=== PATIENT | female | born 1960 | race Caucasian/White ===

== ENCOUNTER 2016-09-04 05:06 | Emergency (ER) | payer OTHER ==
[~2016-09-04] VITALS: Ht 167.6 cm; Wt 68.0 kg
--- NOTE | 2016-09-04 05:23 | ED DYSPNEA/ASTHMA COMPLAINT ---
History of Present Illness General Chief Complaint: Dyspnea (COPD, CHF, Other) Stated Complaint: BIBA SOB Source: patient Exam Limitations: no limitations Vital Signs & Intake/Output Vital Signs & Intake/Output Vital Signs Date Time Temp Pulse Resp B/P B/P Pulse O2 O2 Flow FiO2 Mean Ox Delivery Rate 09/04 922 98.9 112 18 133/81 94 09/04 0709 98.9 101 18 133/84 93 09/04 0604 94 09/04 0524 95 Room Air 09/04 05 97.4 104 18 144/88 95 Room Air Allergies Coded Allergies: aspirin (UNKNOWN 09/04/16) Reconcile Medications Albuterol Sulfate (Proair Hfa) 90 MCG HFA.AER.AD 2 PUF INH Q4-6 PRN PRN SHORTNESS OF BREATH (Reported) Alendronate Sodium 70 MG TABLET 1 TAB PO QTUES BONE STRENGTH (Reported) in the morning, at least 30 minutes before the first food, beverage, or medication of the day Budesonide/Formoterol Fumarate (Symbicort 160-4.5 Mcg Inhaler) 160 MCG-4.5 MCG/ ACTUATION HFA.AER.AD 2 PUF INH BID SHORTNESS OF BREATH (Reported) Divalproex Sodium 250 MG TABLET.DR 1 TAB PO BID NEUROPATHY (Reported) Escitalopram Oxalate 10 MG TABLET 1 TAB PO DAILY DEPRESSION (Reported) Esomeprazole (Nexium) 40 MG CAPSULE.DR 1 CAP PO DAILY GI (Reported) Gabapentin 300 MG CAPSULE 1 CAP PO BID NEUROPATHY (Reported) Ipratropium/Albuterol Sulfate (Iprat-Albut 0.5-3(2.5) MG/3 Ml) 0.5 MG-3 MG (2.5 MG BASE)/3 ML AMPUL.NEB 1 PO BID BREATHING PROBLEMS (Reported) Lidocaine 5 % ADH..PATCH 1 PAT TOP DAILY PRN PAIN (Reported) Triage Nurses Notes Reviewed? yes HPI: Patient presents for evaluation of an abrupt onset of dyspnea that began yesterday. Symptoms have been constant and have gotten worse overnight. The patient states she has been wheezing and coughing with white phlegm production. Despite using her nebulizer and metered-dose inhaler at home her shortness of breath persisted. She has had a runny nose and sinus congestion but otherwise denies fever or leg swelling. She is also experiencing a sharp left chest pain that gets worse with coughing, a 3-4 out of 10 in intensity. Patient was treated with a DuoNeb and Solu-Medrol prehospital. (JUAN WYNNE,LI Love) Past History Travel History Traveled to [place] past 21 day No Medical History Any Pertinent Medical History? see below for history Respiratory: COPD Gastrointestinal: peptic ulcer disease, upper GI bleed Endocrine: diabetes Surgical History Surgical History: unobtainable Psychosocial History Who do you live with Other (see notes) What is your primary language Persian Tobacco Use: Current Daily Use Daily Tobacco Use Amount/Type: => 5 Cigarettes daily Family History Hx Contributory? No (LI MARTINEZ MD) Review of Systems Review of Systems Constitutional: Reports: no symptoms. EENTM: Reports: no symptoms. Respiratory: Reports: see HPI. Cardiovascular: Reports: no symptoms. GI: Reports: no symptoms. Genitourinary: Reports: no symptoms. Musculoskeletal: Reports: no symptoms. Skin: Reports: no symptoms. Neurological/Psychological: Reports: no symptoms. Hematologic/Endocrine: Reports: no symptoms. Immunologic/Allergic: Reports: no symptoms. All Other Systems: Reviewed and Negative (JUAN WYNNE,LI Love) Physical Exam Physical Exam Respiratory: sEE BELOW Comments: Gen.: Well-nourished, well-developed, no acute respiratory distress. Head: Normocephalic, atraumatic. Eyes: Normal inspection bilaterally Ears: Normal inspection bilaterally Nose: Normal inspection Throat/mouth : Moist mucosa Neck: Supple, full range of motion, no goiter Heart: Regular rate and rhythm, no murmurs rubs or gallops Lungs: Clear to auscultation bilaterally with normal air entry Chest: Nontender Back: Normal range of motion Abdomen: Soft, nontender, nondistended, normal bowel sounds Extremities: Normal range of motion grossly, equal radial pulses, no cyanosis clubbing or edema, calves nontender Neurologic: Cranial nerves grossly intact, speech is clear Skin: warm and dry Psychiatric: Calm, cooperative, no apparent delusions or hallucinations Core Measures ACS in differential dx? No Severe Sepsis Present: No Septic Shock Present: No (LI MARTINEZ MD) Progress Differential Diagnosis: bronchitis, CHF, COPD, pneumonia Plan of Care: Orders Procedure Date/time Status Telemetry/Data Software Engineer 09/04 520 Active TROPONIN LEVEL 09/04 520 Complete MAGNESIUM 09/04 520 Complete CBC WITHOUT DIFFERENTIAL 09/04 520 Complete B-TYPE NATRIURETIC PEP (BNP) 09/04 520 Complete BASIC METABOLIC PANEL 09/04 520 Complete EKG 09/04 520 Active Current Medications Sig/Beverly Start time Last Medication Dose Stop Time Status Admin Azithromycin 500 MG ONCE ONE 09/04 1030 AC 09/04 (Zithromax) 09/04 1129 1110 Sodium Chloride 250 ML (Normal Saline 0.9%) Laboratory Tests 09/04/16 0532: Anion Gap 14, Estimated GFR > 60, BUN/Creatinine Ratio 22.0, Glucose 91, Calcium 8.7, Magnesium 1.5 L, Troponin I < 0.01, Jeg-Z-Lojkwhutadp Pept 35.5, CBC w Diff NO MAN DIFF REQ, RBC 4.15 L, MCV 90.8, MCH 30.4, RDW 15.4 H, MPV 6.3 L, Gran % 43.7, Lymphocytes % 46.9, Monocytes % 7.7, Eosinophils % 1.1, Basophils % 0.6, Absolute Granulocytes 2.3, Absolute Lymphocytes 2.4, Absolute Monocytes 0.4 , Absolute Eosinophils 0.1, Absolute Basophils 0, PUBS MCHC 33.5 Initial ED EKG: NSR, rate, AFIB (91), no ST T wave changes Comments: 09/04/2016 8:38:46 AM Bijal is feeling better after nebulizer here in the emergency department and prehospital DuoNeb and Solu-Medrol. He has an infiltrate on her chest x-ray likely representing a pneumonia. Patient signed out to Dr. Lugo with albuterol nebulizer in progress (JUAN WYNNE,LI Love) Comments: Ambulatory saturation 94%. Patient is anxious about going home. Patient has home health as well as bilingual social worker involvement already. Patient is stable for discharge. (DK WYNNE,HITESH Escobar) Departure Departure Condition: Stable Clinical Impression Primary Impression: COPD exacerbation Referrals: JETHRO WYNNE,THEE Brown (PCP/Family) Departure Forms: Customer Survey General Discharge Information (JUAN WYNNE,LI Love) Departure Disposition: HOME OR SELF CARE Additional Instructions: TAKE ANTIBIOTICS PRESCRIBED RETURN IF SYMPTOMS WORSEN OR FOR ANY CONCERNS Prescriptions: Current Visit Scripts Azithromycin (Zithromax) 1 DP PO AD #6 TAB 2 the first day followed by 1 for days 2-5 Prednisone 1 TAB PO DAILY #30 TAB TAKE 4 TABS FOR 3 DAYS THEN TAKE 3 TABS FOR 3 DAYS THEN TAKE 2 TABS FOR 3 DAYS THEN TAKE 1 TAB FOR 3 DAYS (DK WYNNE,HITESH Escobar) Critical Care Note Critical Care Note Critical Care Time: 30-74 min (JUAN WYNNE,LI Love)
[2016-09-04 05:41] LABS: ABSOLUTE BASOPHIL COUNT 0 /CUMM (0.0-0.2); ABSOLUTE EOSINOPHIL COUNT 0.1 /CUMM (0.0-0.7); ABSOLUTE GRANULOCYTE CT 2.3 /CUMM (1.4-6.5); ABSOLUTE LYMPH COUNT 2.4 /CUMM (1.2-3.4); ABSOLUTE MONOCYTE COUNT 0.4 /CUMM (0.10-0.60); BASOPHIL % 0.6 % (0.0-2.0); EOSINOPHIL % 1.1 % (0-5); GRANULOCYTE % 43.7 % (42.2-75.2); HEMATOCRIT 37.6 % (37-47); MEAN CORPUSCULAR HGB 30.4 PG (27.0-31.0); MEAN CORPUSCULAR HGB CONC 33.5 G/DL (33.0-37.0); MEAN CORPUSCULAR VOLUME 90.8 FL (81.0-99.0); MEAN PLATELET VOLUME 6.3 FL (7.4-10.4); PLATELET COUNT 175 /CUMM (130-400); RBC DISTRIBUTION WIDTH 15.4 % (11.5-14.5); RED BLOOD CELL CT 4.15 /CUMM (4.20-5.40); WHITE BLOOD CELL COUNT 5.2 /CUMM (4.8-10.8)
--- NOTE | 2016-09-04 08:14 | RADIOLOGY REPORT ---
EXAMINATION: XR PORTABLE CHEST CLINICAL INFORMATION: Dyspnea, cough, sputum COMPARISON: None TECHNIQUE: Portable upright AP view of the chest was obtained. FINDINGS: There is probable airspace consolidation left retrocardiac region with ill-defined diaphragmatic contour. The remainder the lungs appear clear. The vascularity is within normal. The cardiopericardial silhouette appears enlarged. Hilar and mediastinal contours and bony structures are unremarkable. IMPRESSION: Airspace consolidation left base.
[2016-09-04] MEDS ORDERED: GABAPENTIN300 M2 PO (08:26)
[2016-09-04] MEDS ORDERED: DIVALPROEX SOD250 M2 PO (08:27)
[2016-09-04] MEDS ORDERED: NEXIUM40 M1 PO (08:27)
[2016-09-04] MEDS ORDERED: ESCITALOPRAM OX10 MG PO (08:27)
[2016-09-04] MEDS ORDERED: PROAIR HFA8.5 GM INH (08:28)
[2016-09-04] MEDS ORDERED: SYMBICORT 16010.2 GM INH (08:28)
[2016-09-04] MEDS ORDERED: ALENDRONATE SOD70 M2 PO (08:28)
[2016-09-04] MEDS ORDERED: IPRAT-ALBUT 0.5-3 ML PO (08:29)
[2016-09-04] MEDS ORDERED: LIDOCAINE1 EACH TOP (08:29)
[2016-09-04] MEDS ORDERED: ZITHROMAX250 M2 PO (11:21)
[2016-09-04] MEDS ORDERED: PREDNISONE10 M2 PO (11:21)
[2016-09-04 11:51] VITALS: BP 128/80
== END 2016-09-04 12:08 ==
LOC: ERH 05:06
PROVIDERS: Emergency Medicine
DX: J44.1 Chronic obstructive pulmonary disease with (acute) exacerbation (principal); F17.210 Nicotine dependence, cigarettes, uncomplicated
CPT/HCPCS: 1263; 1395; 93005; 93010; 96374; 96375; J0696

== ENCOUNTER 2017-04-01 11:55 | Emergency (ER) | payer OTHER ==
[~2017-04-01] VITALS: Ht 10.2 cm; Wt 68.0 kg
[~2017-04-01 11:55] MED LIST: ALENDRONATE SOD70 M2 PO; ATORVASTATIN CA20 M1 PO; AUGMENTIN 875-1 EACH PO; DIVALPROEX SOD250 M2 PO; ESCITALOPRAM OX10 MG PO; GABAPENTIN300 M2 PO; IPRAT-ALBUT 0.5-3 ML INH; LIDOCAINE1 EACH TOP; MELOXICAM15 M1 PO; NEXIUM40 M1 PO; PREDNISONE10 M2 PO; PROAIR HFA8.5 GM INH; SYMBICORT 16010.2 GM INH; SYNTHROID25 MCG PO; TYLENOL325 M1 PO; ZITHROMAX250 M2 PO
[2017-04-01 12:02] VITALS: BP 129/83
== END 2017-04-01 12:03 | disposition admitted as inpatient to this hospital (09) ==
LOC: ERH 11:55
DX: M54.5 Low back pain (principal)

== ENCOUNTER 2017-05-31 19:13 | Emergency (ER) | payer OTHER ==
[~2017-05-31] VITALS: Ht 160 cm; Wt 68.0 kg
--- NOTE | 2017-05-31 19:16 | ED PSYCHIATRIC COMPLAINT ---
History of Present Illness General Chief Complaint: ETOH/Drug Related Complaint Stated Complaint: BIBA ETOH Source: patient, EMS Exam Limitations: intoxication Vital Signs & Intake/Output Vital Signs & Intake/Output Vital Signs Date Time Temp Pulse Resp B/P B/P Pulse O2 O2 Flow FiO2 Mean Ox Delivery Rate 06/01 0151 98.4 97 20 105/56 99 Room Air 05/31 2235 98.0 111 20 101/60 95 Room Air 05/31 1928 98.1 66 20 128/80 96 ED Intake and Output 06/01 0000 05/31 1200 Intake Total 0 Output Total Balance 0 Intake, Oral 0 Patient 150 lb Weight Weight Reported by Patient Measurement Method Allergies Coded Allergies: aspirin (Intermediate, NAUSEA 12/07/16) Reconcile Medications Albuterol Sulfate (Proair Hfa) 90 MCG HFA.AER.AD 2 PUF INH Q4-6 PRN PRN SHORTNESS OF BREATH (Reported) Alendronate Sodium 70 MG TABLET 1 TAB PO QTUES BONE STRENGTH (Reported) in the morning, at least 30 minutes before the first food, beverage, or medication of the day Atorvastatin Calcium 20 MG TABLET 1 TAB PO DAILY CHOLESTEROL (Reported) Divalproex Sodium 250 MG TABLET.DR 1 TAB PO BID NEUROPATHY (Reported) Escitalopram Oxalate 10 MG TABLET 1 TAB PO DAILY DEPRESSION (Reported) Esomeprazole (Nexium) 40 MG CAPSULE.DR 1 CAP PO DAILY GI (Reported) Gabapentin 300 MG CAPSULE 1 CAP PO BID NEUROPATHY (Reported) Ipratropium/Albuterol Sulfate (Iprat-Albut 0.5-3(2.5) MG/3 Ml) 0.5 MG-3 MG (2.5 MG BASE)/3 ML AMPUL.NEB 1 VIAL INH BID BREATHING PROBLEMS (Reported) Levothyroxine Sodium (Synthroid) 25 MCG TABLET 1 TAB PO DAILY AC THYROID ( Reported) Lidocaine 5 % ADH..PATCH 1 PAT TOP DAILY PRN PAIN (Reported) Meloxicam 15 MG TABLET 1 TAB PO DAILY PRN pain Triage Nurses Notes Reviewed? yes HPI: This is a 56-year-old female brought into the hospital by ambulance after being told by police that she had to come for evaluation. She states that today she called the police because there was a man outside of her house that was making a lot of records. She states when the police came to talk to her about it they noticed that she had been drinking which she admits to. She states that she's been drinking every day for the last several days. No SI or HI. Patient was told that if she didn't come willingly that they would put her on a 72 hour hold. Patient states that she is little bit upset because she is moving her 's body to be next to his son's cemetery plot. Because of the she's felt slightly depressed. (Lauren Bazan MD) Past History Medical History Any Pertinent Medical History? see below for history Neurological: seizure EENT: NONE Cardiovascular: NONE Respiratory: COPD Gastrointestinal: peptic ulcer disease, upper GI bleed Hepatic: NONE Renal: NONE Musculoskeletal: osteoarthritis, osteoporosis Psychiatric: alcohol dependence, anxiety Endocrine: BORDER LINE DIABETES Blood Disorders: NONE Cancer(s): NONE SEQUINS SPOOLER/Reproductive: NONE History of MRSA: No History of VRE: No History of CDIFF: No Surgical History Surgical History: unobtainable Psychosocial History What is your primary language Belgian Family History Hx Contributory? No (Lauren Bazan MD) Review of Systems Review of Systems Constitutional: Denies: chills, fever. Respiratory: Denies: cough, short of breath, sputum production. Cardiovascular: Denies: chest pain, peripheral edema. GI: Denies: abdominal pain. Neurological/Psychological: Reports: anxiety, emotional problems. (Lauren Bazan MD) Physical Exam Physical Exam General Appearance: well developed/nourished, alert, awake, intoxicated Head: atraumatic, normal appearance Eyes: Bilateral: normal appearance, PERRL, EOMI. Ears, Nose, Throat: normal pharynx, hearing grossly normal Neck: normal inspection, supple, full range of motion Respiratory: normal breath sounds, chest non-tender, no respiratory distress Cardiovascular: regular rate/rhythm, normal peripheral pulses Gastrointestinal: soft, non-tender Extremities: normal range of motion Neurological/Psychiatric: awake, alert Appearance/Memory/Insight: appropriate appearance, denies illness Behavoir/Eye Contact/Speech: cooperative Thoughts/Hallucinations: no apparent hallucination Skin: intact, normal color, warm/dry SAD PERSONS Done? patient not suicidal (Lauren Bazan MD) Progress Differential Diagnosis: ALCOHOL INTOXICATION Plan of Care: SOBRIETY AND DISCHARGE Hand-Off Endorsed To: Carlos WYNNE,Aubrey Edge Endorsed Time: 2300 Pending: other (SOBRIETY) (Lauren Bazan MD) Departure Departure Disposition: STILL A PATIENT Condition: Stable Clinical Impression Primary Impression: Alcohol intoxication Referrals: Lillian WYNNE,Perry Brown (PCP/Family) Departure Forms: Customer Survey General Discharge Information (Beni WYNNE,Lauren) Departure Comments 06/01/17, 1:52am... pt breathylized 0.069. She is awake and alert, ambulating well, answering questions appropriately. She wishes to go home, denies SI/HI and does not wish detox. (Carlos WYNNE,Aubrey Edge)
[2017-06-01 01:51] VITALS: BP 105/56
== END 2017-06-01 02:00 ==
LOC: ERH 19:13
DX: F10.129 Alcohol abuse with intoxication, unspecified (principal)

== ENCOUNTER 2017-06-19 13:49 | Emergency (ER) | payer SELFPAY | END 2017-06-19 14:13 | disposition admitted as inpatient to this hospital (09) | LOC: ERH 13:49 | DX: R06.02 Shortness of breath (principal) | CPT/HCPCS: 87804; 87804-59 ==

== ENCOUNTER 2017-07-05 19:03 | Inpatient (IN) | payer OTHER ==
[~2017-07-05] VITALS: Ht 167.6 cm; Wt 65.1 kg
--- NOTE | 2017-07-05 19:09 | ED PSYCHIATRIC COMPLAINT ---
History of Present Illness General Chief Complaint: Psychiatric Related Complaint Stated Complaint: HALUCINATIONS Source: patient, EMS, police Exam Limitations: no limitations Vital Signs & Intake/Output Vital Signs & Intake/Output Vital Signs Date Time Temp Pulse Resp B/P B/P Pulse O2 O2 Flow FiO2 Mean Ox Delivery Rate 07/05 2157 97.1 104 18 110/68 93 Nasal 2.0L Cannula 07/06 2047 94 Nasal 2.0L Cannula 07/06 2039 111 18 104/58 89 Room Air 07/05 1913 98.4 99 19 120/86 95 Room Air Allergies Coded Allergies: aspirin (Intermediate, NAUSEA 06/22/17) Reconcile Medications Albuterol Sulfate (Proair Hfa) 90 MCG HFA.AER.AD 2 PUF INH Q4-6 PRN PRN SHORTNESS OF BREATH (Reported) Alendronate Sodium 70 MG TABLET 1 TAB PO QTUES BONE STRENGTH (Reported) in the morning, at least 30 minutes before the first food, beverage, or medication of the day Atorvastatin Calcium 20 MG TABLET 1 TAB PO DAILY CHOLESTEROL (Reported) Divalproex Sodium 250 MG TABLET.DR 1 TAB PO BID NEUROPATHY (Reported) Escitalopram Oxalate 10 MG TABLET 1 TAB PO DAILY DEPRESSION (Reported) Esomeprazole (Nexium) 40 MG CAPSULE.DR 1 CAP PO DAILY GI (Reported) Gabapentin 300 MG CAPSULE 1 CAP PO BID NEUROPATHY (Reported) Ipratropium/Albuterol Sulfate (Iprat-Albut 0.5-3(2.5) MG/3 Ml) 0.5 MG-3 MG (2.5 MG BASE)/3 ML AMPUL.NEB 1 VIAL INH BID BREATHING PROBLEMS (Reported) Levothyroxine Sodium (Synthroid) 25 MCG TABLET 1 TAB PO DAILY AC THYROID ( Reported) Lidocaine 5 % ADH..PATCH 1 PAT TOP DAILY PRN PAIN (Reported) Meloxicam 15 MG TABLET 1 TAB PO DAILY PRN pain Triage Nurses Notes Reviewed? yes Onset: Gradual Duration: hour(s): Timing: recent history Severity: moderate Associated Symptoms: anxiety, impaired concentration HPI: 56 YO woman h/o etoh and psychiatric issues, presents with hallucinations. Per the police, "She called us because she said there was someone in her house staring at her....We got there and there was no one there." Per the medics, "She was really agitated and threatening.... She had been drinking tonight." She arrives in four point restraints making threatening gestures and shouting obscenities at staff, police, and medics. Past History Medical History Any Pertinent Medical History? see below for history Neurological: seizure EENT: NONE Cardiovascular: NONE Respiratory: COPD Gastrointestinal: peptic ulcer disease, upper GI bleed Hepatic: NONE Renal: NONE Musculoskeletal: osteoarthritis, osteoporosis Psychiatric: alcohol dependence, anxiety Endocrine: BORDER LINE DIABETES Blood Disorders: NONE Cancer(s): NONE INSIDE WIRER/Reproductive: NONE History of MRSA: No History of VRE: No History of CDIFF: No Surgical History Surgical History: unobtainable Psychosocial History What is your primary language Slovak Family History Hx Contributory? No Review of Systems Review of Systems Constitutional: Reports: no symptoms. EENTM: Reports: no symptoms. Respiratory: Reports: no symptoms. Cardiovascular: Reports: no symptoms. GI: Reports: no symptoms. Genitourinary: Reports: no symptoms. Musculoskeletal: Reports: no symptoms. Skin: Reports: no symptoms. Neurological/Psychological: Reports: no symptoms. Hematologic/Endocrine: Reports: no symptoms. Immunologic/Allergic: Reports: no symptoms. All Other Systems: Reviewed and Negative Physical Exam Physical Exam General Appearance: well developed/nourished, mild distress Head: atraumatic Eyes: Bilateral: PERRL, EOMI. Ears, Nose, Throat: normal pharynx, normal ENT inspection, hearing grossly normal Neck: normal inspection, supple Respiratory: normal breath sounds Cardiovascular: regular rate/rhythm Gastrointestinal: soft, non-tender Extremities: normal range of motion Neurological/Psychiatric: agitated, anxious Appearance/Memory/Insight: disheveled, impaired insight Behavoir/Eye Contact/Speech: uncooperative, compulsive, threatening eye contact Thoughts/Hallucinations: auditory hallucinations, flight of ideas Skin: intact, normal color, warm/dry SAD PERSONS SAD PERSONS Response Value Age <19 or >45 years? yes 1 Depression/Hopelessness? yes 2 Excessive Ethanol/Drug Use? yes 1 Rational Thinking Loss? yes 2 Single//? yes 1 Social Support? has no support 1 Total 8 SAD PERSONS Done? yes Progress Differential Diagnosis: schizophrenia vs drug abuse vs other. Plan of Care: Orders Procedure Date/time Status Regular Diet 07/06 B Active URINE DRUG SCREEN FOR ER ONLY 07/06 0335 Active Restraint- Behavioral (Order) 07/05 1926 Complete Continuous Observation Monitor 07/05 1926 Active ETHANOL 07/05 1926 Complete COMPREHENSIVE METABOLIC PANEL 07/05 1926 Complete CBC WITHOUT DIFFERENTIAL 07/05 1926 Complete ED CRISIS PSYCH CONSULT 07/05 1926 Active Laboratory Tests 07/05/17 2020: Anion Gap 26 H, Estimated GFR > 60, BUN/Creatinine Ratio 14.0, Glucose 76, Calcium 9.2, Total Bilirubin 0.7, AST 152 H, ALT 99 H, Alkaline Phosphatase 183 H, Total Protein 7.2, Albumin 4.2, Globulin 3.0, Albumin/Globulin Ratio 1.4 , CBC w Diff NO MAN DIFF REQ, RBC 4.11 L, MCV 100.1 H, MCH 31.9 H, MCHC 31.9 L, RDW 18.6 H, MPV 7.0 L, Gran % 64.8, Lymphocytes % 25.9, Monocytes % 8.6, Eosinophils % 0.3, Basophils % 0.4, Absolute Granulocytes 4.5, Absolute Lymphocytes 1.8, Absolute Monocytes 0.6, Absolute Eosinophils 0, Absolute Basophils 0, Serum Alcohol 193.0 07/05/171926: Methadone Screen Cancelled, Barbiturate Screen Cancelled, Ur Phencyclidine Scrn Cancelled, Amphetamines Screen Cancelled, U Benzodiazepines Scrn Cancelled, Urine Cocaine Screen Cancelled, Urine Cannabis Screen Cancelled Hand-Off Endorsed To: Cortney WYNNE,Mitch Watkins Endorsed Time: 0700 Pending: consult, labs Departure Departure Disposition: STILL A PATIENT Condition: Stable Clinical Impression Primary Impression: Alcohol intoxication Secondary Impressions: Hallucinations Referrals: Perry Snyder MD (PCP/Family) Departure Forms: Customer Survey General Discharge Information
[2017-07-05 20:32] LABS: ABSOLUTE BASOPHIL COUNT 0 /CUMM (0.0-0.2); ABSOLUTE EOSINOPHIL COUNT 0 /CUMM (0.0-0.7); ABSOLUTE GRANULOCYTE CT 4.5 /CUMM (1.4-6.5); ABSOLUTE LYMPH COUNT 1.8 /CUMM (1.2-3.4); ABSOLUTE MONOCYTE COUNT 0.6 /CUMM (0.10-0.60); BASOPHIL % 0.4 % (0.0-2.0); EOSINOPHIL % 0.3 % (0-5); GRANULOCYTE % 64.8 % (42.2-75.2); HEMATOCRIT 41.1 % (37-47); MEAN CORPUSCULAR HGB 31.9 PG (27.0-31.0); MEAN CORPUSCULAR HGB CONC 31.9 G/DL (33.0-37.0); MEAN CORPUSCULAR VOLUME 100.1 FL (81.0-99.0); PLATELET COUNT 183 /CUMM (130-400); RBC DISTRIBUTION WIDTH 18.6 % (11.5-14.5); RED BLOOD CELL CT 4.11 /CUMM (4.20-5.40); WHITE BLOOD CELL COUNT 6.9 /CUMM (4.8-10.8)
[2017-07-06] MEDS ORDERED: FOLIC ACID1 M1 PO (11:35)
[2017-07-06] MEDS ORDERED: AMITRIPTYLINE H50 M2 PO (11:36)
--- NOTE | 2017-07-06 13:32 | ED PSYCH CRISIS CONSULTATION ---
Crisis Consult Basic Assessment Date of Consult: 07/06/17 Responsible Person/Accompanied By: self/biba/PEER Insurance Authorization: Insurance #1: Insurance name: CHELSI CLAYTON Phone number: Policy number: [id number] Group number: Authorization number: ED Provider: Patient's ED Provider: Aubrey Gonzalez MD Primary Care Physician: Patient's PCP: Perry Snyder MD PCP's Current Psychiatrist: Perry Snyder MD [phone] Chief Complaint: Psychiatric Related Complaint Patient's Quote: Police brought me here Present Illness: Pt is a 56 yo female biba last evening on an [place] [employer] PEER. Police report documents that pt was presenting with hallucinations and telling police there were people in her home that were not there. Pt arrived in the ED agitated, combative and in restraints. Pt continued to be non compliant and belligerant towards staff and was placed in a 4 point restraint and sedated with ativan, benadryl and haldol. Pt BAL was 193. Pt was evaluated by crisis the following morning. Pt reports not being clear why she was brought to [place]. She states someone called the police to do a wellness check. Pt reportedly was discharged earlier yesterday from [facility] where she had been admitted medically due to recent rib fracture. Pt reports she went home and drank 1 pint of vodka because she was depressed as it was the birthday of her recently "public health registrar". Pt reports feelings of depression and anxiety and sees her PCP Dr Snyder for medication. She reports he recently increased her Amitriptyline to 50 mg. Pt denies SI/HI and reports no hx of inpatient psychiatric treatment. Pt reports when her children were young DCF required her to go to outpatient counseling otherwise she has had limited mental health treatment. Pt reports drinking 1 pint of vodka 1-2x/wk. She reports prior rehab experiences at [facility] and [facility] but no other alcohol treatment for over 15 years. Pt reports not liking groups or AA. Pt reports being disconnected from family including her 3 daughters and appears to be isolated. She lives by herself and states she is mostly bored except when she can spend sometime with her aunt in [place]. Pt presents as anxious,irritable and OX3. Pt denies AH/VH. Pt offers no rationale for why the police report she was having hallucinations. Pt presents as guarded with minimal insight and poor judgement related to her current health needs. Collateral provided by her PCP and visiting nurse both report pt is gravely disabled and not able to safely live by herself. Pt currently has no resident care technician to stay with. Case reviewed with Dr Barajas. Recommendation for pt to be admitted to inpatient psychiatry. Pt informed of the plan and is not in agreement. Pt [facility]. Patient's Address: [address] [place] [id number] Other Phone Number: Who Do You Live With? Patient/Self Family/Informants Interviewed: Collateral provided by Perry Snyder MD [phone]. He reports pt is gravely disabled due to ongoing alcohol abuse despite medical risks and recent falls resulting in broken bones/rib fracture. He reports pt is depressed and recently increasing pt amitryptaline. Collateral also provided by Germania SMITH [phone] from [facility] [place]. She reports pt was discharged home yesterday from [facility] where she was treated for multiple rib fractures. She fell through a glass table. She reports pt is not safe to live alone. She reports pt is depressed and an alcoholic. Voice message left for pt daughter Miya [phone]. No return call. Allergies - Coded Allergies: aspirin (Intermediate, NAUSEA 06/22/17) Current Medications - Scheduled Medications Alendronate Sodium 70 MG TABLET 1 TAB PO QTUES BONE STRENGTH #4 (Reported) Entered as Reported by Christian Harkins on 09/04/16 0828 Amitriptyline HCl 50 MG TABLET 1 TAB PO QPM UNKNOWN #30 (Reported) Entered as Reported by Christian Harkins on 07/06/17 1136 Atorvastatin Calcium 20 MG TABLET 1 TAB PO DAILY CHOLESTEROL #30 (Reported) Entered as Reported by Amanda Bowles on 03/01/172014 Divalproex Sodium 250 MG TABLET. 1 TAB PO BID NEUROPATHY #60 (Reported) Entered as Reported by Christian Harkins on 09/04/16 0827 Escitalopram Oxalate 10 MG TABLET 1 TAB PO DAILY DEPRESSION #30 (Reported) Entered as Reported by Christian Harkins on 09/04/16 0827 Esomeprazole (Nexium) 40 MG CAPSULE.DR 1 CAP PO DAILY GI #30 (Reported) Entered as Reported by Christian Harkins on 09/04/16 0827 Folic Acid 1 MG TABLET 1 TAB PO DAILY VITAMIN SUPPORT #30 (Reported) Entered as Reported by Christian Harkins on 07/06/17 1135 Gabapentin 300 MG CAPSULE 1 CAP PO BID NEUROPATHY #60 (Reported) Entered as Reported by Chirstian Harkins on 09/04/16 0826 Levothyroxine Sodium (Synthroid) 25 MCG TABLET 1 TAB PO DAILY AC THYROID ( Reported) Entered as Reported by Tyler Mckay on 11/27/162223 Scheduled PRN Medications Albuterol Sulfate (Proair Hfa) 90 MCG HFA.AER.AD 2 PUF INH Q4-6 PRN PRN SHORTNESS OF BREATH #9 (Reported) Entered as Reported by Christian Harkins on 09/04/1628 Laboratory Results: Laboratory Tests 07/06/17 0547: Urine Opiates Screen 481, Methadone Screen 110, Barbiturate Screen < 60, Ur Phencyclidine Scrn < 6.00, Amphetamines Screen < 100, U Benzodiazepines Scrn 520 H, Urine Cocaine Screen < 50, Urine Cannabis Screen < 5.00 07/05/17 2020: Anion Gap 26 H, Estimated GFR > 60, BUN/Creatinine Ratio 14.0, Glucose 76, Calcium 9.2, Total Bilirubin 0.7, AST 152 H, ALT 99 H, Alkaline Phosphatase 183 H, Total Protein 7.2, Albumin 4.2, Globulin 3.0, Albumin/Globulin Ratio 1.4 , CBC w Diff NO MAN DIFF REQ, RBC 4.11 L, MCV 100.1 H, MCH 31.9 H, MCHC 31.9 L, RDW 18.6 H, MPV 7.0 L, Gran % 64.8, Lymphocytes % 25.9, Monocytes % 8.6, Eosinophils % 0.3, Basophils % 0.4, Absolute Granulocytes 4.5, Absolute Lymphocytes 1.8, Absolute Monocytes 0.6, Absolute Eosinophils 0, Absolute Basophils 0, Serum Alcohol 193.0 07/05/177: Methadone Screen Cancelled, Barbiturate Screen Cancelled, Ur Phencyclidine Scrn Cancelled, Amphetamines Screen Cancelled, U Benzodiazepines Scrn Cancelled, Urine Cocaine Screen Cancelled, Urine Cannabis Screen Cancelled Past History Past Medical History Neurological: seizure EENT: NONE Cardiovascular: NONE Respiratory: COPD Gastrointestinal: peptic ulcer disease, upper GI bleed Hepatic: NONE Renal: NONE Musculoskeletal: osteoarthritis, osteoporosis Psychiatric: alcohol dependence, anxiety Endocrine: BORDER LINE DIABETES Blood Disorders: NONE Cancer(s): NONE PACKER/Reproductive: NONE Past Surgical History Surgical History: unobtainable Psychosocial History Strengths/Capabilities: Pt lives by herself; pt reports not needing assistance Psychiatric Treatment History Psych Treatment Psychiatric Treatment Yes Inpatient Treatment No Outpatient Treatment Yes Location of Treatment [facility] Reason for Treatment PCP - prescribing antidepressant medication Dates of Treatment past year Response to Treatment pt reports depression and anxiety. Pt minimizes etoh use. Collateral reports it is daily Diagnosis by History: Major Depression w/psychosis Alcohol Use D/O severe F10.20 Substance Use/Abuse History Drug Use/Abuse Substances Used/Abused Yes Substance Used/Abused Alcohol Last Used yesterday How much used/taken 1 pint vodka How often daily For how long 20 yrs with periods of sobriety Substance Abuse Treatment Substance Abuse Treatment Past Substance Abuse TX Yes Inpatient Treatment Yes Outpatient Treatment Yes Location of Treatment [facility]; [facility]; [facility] Reason for Treatment Alcohol Rehab Dates of Treatment last treatment episode over 15 yrs ago Response to Treatment poor. Pt reports prison etoh use. Pt reports 1 pint vodka a couple times per week. Comments: pt denies substance use. Current Mental Status Mental Status Orientation: Person, Place, Situation Affect: Anxious, Depressed, Labile Speech: Loud, Pressured Neuro-vegetative: WNL Appearance Appearance- Dress/Hygiene: hospital scrubs; disheveled; agitated, appears older than stated age Behaviors Thought Process: Irrational Thought Content: Visual Hallucinations (documented by PEER) Memory: Impaired Insight: Poor SI/HI Risk Assessment Past Suicidal Ideation/Attempts No Current Suicidal Ideation/Att No Past Homicidal Ideation/Att: No Current Homicidal Ideation/Attempts No Degree of Intent: None Danger To: Self Gravely Disabled: Inability, Lack of Insight, Poor Impulse Control, Poor Judgment Risk Factors: chronic/serious med cond., high anxiety/distress, SA/MH hospitalized, substance abuse, isolate/no social support, poor impulse control, lives alone, limited support Lethality Ratin PTSD Checklist PTSD Done? patient declined ED Management Sitter: Yes Restraints: Yes DSM5/PS Stressors/Medical Prob Diagnosis' (DSM 5, Stressors, Medical): Unspecified Depressive d/o F32.9 Alcohol Use D/o F10.20 r/o Major Depression with psychotic features COPD bronchitis Rib injury bereavement discord with daughters Current GAF: 25 Comments: Pt has had multiple recent injuries related to ETOH. Pt discharged yesterday from [facility] after being treated for fractured ribs caused by falling through glass table at home while intoxicated. Pt presenting with hallucinations and intoxification last evening when police went to home for wellness check. Departure Disposition Psych Medical Clearance Date: 07/06/17 Medically Cleared at: 1130 Time Started: 1130 Time Ended: 1215 Psychiatrist Consulted: Tom Barajas MD Date Disposition Established: 07/06/17 Time Disposition Established: 1400 Plan for Disposition - Modality: Inpatient Psychiatry Facility: [facility] Rationale for Disposition: Stabilize mood; medication assessment and evaluate need for antipsychotic medication Type of IP Admission: PEC Referrals Lillian WYNNE,Perry Brown (PCP/Family)
[2017-07-06 14:53] VITALS: BP 141/85
--- NOTE | 2017-07-06 15:57 | IP CRISIS DIAG ASSESS PSYCH ---
Diagnostic Assessment Basic Assessment Insurance Authorization: Insurance #1: Insurance name: CHELSI [employer] Phone number: Policy number: [id number] Group number: Authorization number: [id number] Primary Care Physician: Patient's PCP: Perry Snyder MD PCP's Patient's Quote: Police brought me here Present Illness: Pt is a 56 yo female biba last evening on an [place] [employer] PEER. Police report documents that pt was presenting with hallucinations and telling police there were people in her home that were not there. Pt arrived in the ED agitated, combative and in restraints. Pt continued to be non compliant and belligerant towards staff and was placed in a 4 point restraint and sedated with ativan, benadryl and haldol. Pt BAL was 193. Pt was evaluated by crisis the following morning. Pt reports not being clear why she was brought to [place]. She states someone called the police to do a wellness check. Pt reportedly was discharged earlier yesterday from [facility] where she had been admitted medically due to recent rib fracture. Pt reports she went home and drank 1 pint of vodka because she was depressed as it was the birthday of her recently "plug cutter". Pt reports feelings of depression and anxiety and sees her PCP Dr Snyder for medication. She reports he recently increased her Amitriptyline to 50 mg. Pt denies SI/HI and reports no hx of inpatient psychiatric treatment. Pt reports when her children were young DCF required her to go to outpatient counseling otherwise she has had limited mental health treatment. Pt reports drinking 1 pint of vodka 1-2x/wk. She reports prior rehab experiences at [facility] and [facility] but no other alcohol treatment for over 15 years. Pt reports not liking groups or AA. Pt reports being disconnected from family including her 3 daughters and appears to be isolated. She lives by herself and states she is mostly bored except when she can spend sometime with her aunt in [place]. Pt presents as anxious,irritable and OX3. Pt denies AH/VH. Pt offers no rationale for why the police report she was having hallucinations. Pt presents as guarded with minimal insight and poor judgement related to her current health needs. Collateral provided by her PCP and visiting nurse both report pt is gravely disabled and not able to safely live by herself. Pt currently has no acute care clinical nurse specialist to stay with. Case reviewed with Dr Barajas. Recommendation for pt to be admitted to inpatient psychiatry. Pt informed of the plan and is not in agreement. Pt will be admitted to [facility] on a [facility]. Patient's Address: [address] [place] [id number] Other Phone Number: Who Do You Live With? Patient/Self Feel Safe Where You Live? Yes Feel Safe in Your Relationship Yes Marital Status: Do You Have Children? Yes Ages? adults Primary Language? Armenian Language(s) Spoken At Home: Armenian Family/Informants Interviewed: Collateral provided by Perry Snyder MD . He reports pt is gravely disabled due to ongoing alcohol abuse despite medical risks and recent falls resulting in broken bones/rib fracture. He reports pt is depressed and recently increasing pt amitryptaline. Collateral also provided by Germania SMITH [phone] from [employer]. She reports pt was discharged home yesterday from [facility] where she was treated for multiple rib fractures. She fell through a glass table. She reports pt is not safe to live alone. She reports pt is depressed and an alcoholic. Voice message left for pt daughter Miya [phone]. No return call. Allergies - Coded Allergies: aspirin (Intermediate, NAUSEA 06/22/17) Current Medications - Scheduled Medications Alendronate Sodium 70 MG TABLET 1 TAB PO QTUES BONE STRENGTH #4 (Reported) Entered as Reported by Christian Harkins on 09/04/16 0828 Amitriptyline HCl 50 MG TABLET 1 TAB PO QPM UNKNOWN #30 (Reported) Entered as Reported by Christian Harkins on 07/06/17 1136 Atorvastatin Calcium 20 MG TABLET 1 TAB PO DAILY CHOLESTEROL #30 (Reported) Entered as Reported by Amanda Bowles on 03/01/172014 Cholecalciferol (Vitamin D3) (Vitamin D) 1,000 UNIT TABLET 1 TAB PO DAILY SUPPLEMENT (Reported) Entered as Reported by Amanda Bowles on 07/06/17 1600 Divalproex Sodium 250 MG TABLET. 1 TAB PO BID NEUROPATHY #60 (Reported) Entered as Reported by Christian Harkins on 09/04/16 08 Escitalopram Oxalate 10 MG TABLET 1 TAB PO DAILY DEPRESSION #30 (Reported) Entered as Reported by Christian Harkins on 09/04/16 08 Esomeprazole (Nexium) 40 MG CAPSULE.DR 1 CAP PO DAILY GI #30 (Reported) Entered as Reported by Christian Harkins on 09/04/16 0827 Folic Acid 1 MG TABLET 1 TAB PO DAILY VITAMIN SUPPORT #30 (Reported) Entered as Reported by Christian Harkins on 07/06/17 1135 Gabapentin 300 MG CAPSULE 1 CAP PO BID NEUROPATHY #60 (Reported) Entered as Reported by Christian Harkins on 09/04/16 0826 Ipratropium/Albuterol Sulfate (Iprat-Albut 0.5-3(2.5) MG/3 Ml) 0.5 MG-3 MG (2.5 MG BASE)/3 ML AMPUL.NEB 1 AMP INH BID RESP. (Reported) Entered as Reported by Amanda Bowles on 07/06/17 1602 Levothyroxine Sodium (Synthroid) 25 MCG TABLET 1 TAB PO DAILY AC THYROID ( Reported) Entered as Reported by Tyler Mckay on 11/27/16 2224 Lidocaine (Lidoderm) 5 % ADH..PATCH 1 PAT TOP DAILY PAIN (Reported) Entered as Reported by Amanda Bowles on 07/06/17 1602 Scheduled PRN Medications Albuterol Sulfate (Proair Hfa) 90 MCG HFA.AER.AD 2 PUF INH Q4-6 PRN PRN SHORTNESS OF BREATH #9 (Reported) Entered as Reported by Christian Harkins on 09/04/16 0828 Consequences of Psych Med Use: amitriptyline recent increase to 50mg Comment: prescribed medications by PCP Lab Results: Laboratory Tests 07/06/17 0547: Urine Opiates Screen 481, Methadone Screen 110, Barbiturate Screen < 60, Ur Phencyclidine Scrn < 6.00, Amphetamines Screen < 100, U Benzodiazepines Scrn 520 H, Urine Cocaine Screen < 50, Urine Cannabis Screen < 5.00 07/05/17 2020: Anion Gap 26 H, Estimated GFR > 60, BUN/Creatinine Ratio 14.0, Glucose 76, Calcium 9.2, Total Bilirubin 0.7, AST 152 H, ALT 99 H, Alkaline Phosphatase 183 H, Total Protein 7.2, Albumin 4.2, Globulin 3.0, Albumin/Globulin Ratio 1.4 , CBC w Diff NO MAN DIFF REQ, RBC 4.11 L, MCV 100.1 H, MCH 31.9 H, MCHC 31.9 L, RDW 18.6 H, MPV 7.0 L, Gran % 64.8, Lymphocytes % 25.9, Monocytes % 8.6, Eosinophils % 0.3, Basophils % 0.4, Absolute Granulocytes 4.5, Absolute Lymphocytes 1.8, Absolute Monocytes 0.6, Absolute Eosinophils 0, Absolute Basophils 0, Serum Alcohol 193.0 07/05/171926: Methadone Screen Cancelled, Barbiturate Screen Cancelled, Ur Phencyclidine Scrn Cancelled, Amphetamines Screen Cancelled, U Benzodiazepines Scrn Cancelled, Urine Cocaine Screen Cancelled, Urine Cannabis Screen Cancelled Toxicology Screen Completed? Yes Results: positive Symptoms of Use: ETOH Abuse Past History Past Surgical History Surgical History FOOT SRX Abuse/Trauma History Trauma History/Current Trauma: Denies Legal History Current Legal Status: none Psychosocial History Strengths/Capabilities: Pt lives by herself; pt reports not needing assistance Psychiatric Treatment History Psych Treatment Psychiatric Treatment Yes Inpatient Treatment No Outpatient Treatment Yes Location of Treatment [facility] Reason for Treatment PCP - prescribing antidepressant medication Dates of Treatment past year Response to Treatment pt reports depression and anxiety. Pt minimizes etoh use. Collateral reports it is daily Diagnosis by History: Major Depression w/psychosis Alcohol Use D/O severe F10.20 Risk Factors: chronic/serious med cond., high anxiety/distress, SA/MH hospitalized, substance abuse, isolate/no social support, poor impulse control, lives alone, limited support Substance Use/Abuse History Drug Use/Abuse minimum 12mo Hx Substances Used/Abused Yes Substance Used/Abused Alcohol Last Used yesterday How much used/taken 1 pint vodka How often daily For how long 20 yrs with periods of sobriety Substance Abuse Treatment Substance Abuse Treatment Past Substance Abuse TX Yes Inpatient Treatment Yes Outpatient Treatment Yes Location of Treatment [facility]; [facility]; [facility] Reason for Treatment Alcohol Rehab Dates of Treatment last treatment episode over 15 yrs ago Response to Treatment poor. Pt reports prison etoh use. Pt reports 1 pint vodka a couple times per week. Education History Highest Level of Education: high school/GED Preferred Learning Style: visual, auditory, experiential Current Mental Status Mental Status Orientation: Person, Place, Situation Affect: Anxious, Depressed, Labile Speech: Loud, Pressured Neuro-vegetative: WNL Appearance Appearance- Dress/Hygiene: hospital scrubs; disheveled; agitated, appears older than stated age Behaviors Thought Process: Irrational Thought Content: Visual Hallucinations (documented by PEER) Memory: Impaired Insight: Poor SI/HI Risk Assessment - Minimum 6mo History- Past Suicidal Ideation/Attempts No Current Suicidal Ideation/Att No Past Homicidal Ideation/Att: No Current Homicidal Ideation/Attempts No Degree of Intent: None Danger To: Self Gravely Disabled: Inability, Lack of Insight, Poor Impulse Control, Poor Judgment Risk Factors: chronic/serious med cond., high anxiety/distress, SA/MH hospitalized, substance abuse, isolate/no social support, poor impulse control, lives alone, limited support Lethality Ratin Needs/Init TX Plan/Goals: Psychiatric Evaluation Medication assessment Individual, family and group meeting Coordinating discharge planning AUDIT-C Questionnaire: AUDIT-C Questionnaire: Response Value ETOH use in the past year 4 or more per week 4 # drinks typical/day 10 or more 4 6 or > drinks per occasion Daily/Almost Daily 4 Total 12 DSM5/PS Stressors/Medical Prob Diagnosis' (DSM 5, Stressors, Medical): Unspecified Depressive d/o F32.9 Alcohol Use D/o F10.20 r/o Major Depression with psychotic features COPD bronchitis Rib injury bereavement discord with daughters Current GAF: 25 Comments: Pt has had multiple recent injuries related to ETOH. Pt discharged yesterday from [facility] after being treated for fractured ribs caused by falling through glass table at home while intoxicated. Pt presenting with hallucinations and intoxification last evening when police went to home for wellness check.
[2017-07-06] MEDS ORDERED: VITAMIN D1000 UNIT PO (16:00)
[2017-07-06] MEDS ORDERED: IPRAT-ALBUT 0.5-3 ML INH (16:02)
[2017-07-06] MEDS ORDERED: LIDODERM1 EACH TOP (16:02)
[2017-07-06] MEDS ORDERED: SYMBICORT 16010.2 GM INH (16:03)
[2017-07-06 18:04] VITALS: BP 134/84
[2017-07-06 19:47] VITALS: BP 143/94
[2017-07-06 19:53] VITALS: BP 143/94
[2017-07-06 22:25] VITALS: BP 150/97
[2017-07-06 22:30] VITALS: BP 137/92
[2017-07-07] VITALS (13 sets, daily range): BP systolic 120–145; BP diastolic 65–95
--- NOTE | 2017-07-07 12:16 | CPS PROVIDER INIT ASMT PSYCH ---
Psychiatric Admission Cruise Counselor's Note Reviewed: Yes Patient Seen and Examined: Yes Identifying Information: 56 yo WF with mental status changes, alcohol withdrawal syndrome and alcohol use disorder admitted on 07/06/17 on a PEC. Chief Complaint: Patient is too sedated for interview, apparently from medication. Asleep in bed. Speech is garbled. Reaction to Hospitalization: Patient unable to provide. History of Present Illness Onset of Illness: Chronic alcoholism. Was mandated to [facility] by DCF when patient's children were young. Circumstances Leading to Admission: Presented to ER on [facility]. Patient reportedly was hallucinating and told police there were people in her home when there weren't. On arrival to ER, patient was reported to have been agitated, combative and required restraints. BAL was 193. Patient was recently discharged from [facility] where she had an admission for rib fx(s). 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 Patient told insole department worker she had feelings of depression and anxiety. Dr. Snyder recently increased AMI to 50 mg. Patient reported drinking 1 pint of vodka 1-2x/week. She has had rehabs at [facility] and [facility] but no other alcohol treatment for over 15 years. Reported not liking groups or AA. Reported being disconnected from family, including her 3 daughters. Problem(s) Justifying Need for Admission: Mental status changes. Likely alcohol withdrawal syndrome. Mood disturbance. Past Psychiatric History Past Diagnosis(es)- if any: Apparent alcohol use d/o. Likely depression and anxiety. Past Precipitating Factors- if any: Unknown. - Include inpatient and outpatient treatment Treatment History: [facility] when patient's children were young. No prior inpatient tx. History of Suicide Attempts or Gestures None per insole department worker's note. Substance Abuse History: Alcohol as above. Urine drug screen +benzos. EtOH 193. Rehabs as above. Allergies: Coded Allergies: aspirin (Intermediate, NAUSEA 06/22/17) Home Med List: Alendronate 70 mg qTues AMI 50 mg qPM Lipitor 20 mg daily Depakote 250 mg bid Lexapro 10 mg daily Nexium 40 mg daily Folate 1 mg daily Neurontin 300 mg bid Synthroid 25 mcg daily Albuterol prn - Include any medical condition(s) that may - impact the patient's recovery/remission Past Medical History: Recent fall(s)/rib fx's. Low K+, recently low Mg++. 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 Patient too sedated for interview. Substance Use: Unknown. Patient too sedated for interview. Suicides: Unknown. Patient too sedated for interview. Social History Living Situation: Lives alone. Significant Relationships (family/friends): Credit Collector reportedly recently. Patient reportedly is close to an aunt in [place]. Reportedly extranged from 3 daughters. Education: Unknown. Patient too sedated for interview. Vocation/Occupation: Unknown. Patient too sedated for interview. Legal: Unknown. Patient too sedated for interview. Healthly Behaviors Screening Tobacco Screening Tobacco Use from ED Docu: Current Not Daily Daily Tobacco Use Amount/Type: =< 4 Cigarettes daily - If tobacco counseling indicated - the following topics are required. - #1 Recognizing dangerous situations. - #2 Coping Skills. - #3 Basic information about quitting. Status of Tobacco Cessation Counseling: Cognitive Impairment Cessation Med Status Nicotine Patch Ordered Alcohol Screening - ETOH screen POS if BAL >=80 or Audit-C>= M4/F3 Audit-C Score from Diag Assess: 12 Blood Alcohol Level: Laboratory Tests 07/06 2019 Toxicology Serum Alcohol (<10 MG/DL) 193.0 Alcohol Use Screening Results: Impaired D/T Meds - If ETOH counseling indicated - the following topics are required. - #1 Express concern about the patient's - drinking at unhealthy levels, include informing - of national norms for moderate drinking: - men <= 14 drinks/week, max 4 drinks/occasion - women <= 7 drinks/week, max 3 drinks/occasion - #2 Providing feedback, including linking alcohol to - negative physical effects (liver injury, hypertension) - negative emotional effects (relationship problems and - depression) - negative occupational consequences (reduced work - performance) - #3 Advising the patient to abstain from alcohol or - to drink below national norms for moderate drinking - (as listed above). Status of ETOH Use Counseling: Cognitive Impairment Metabolic Screening - Screen if on a Neuroleptic Medication - Metabolic screening should include: - Blood Pressure, BMI, Glucose or Hgb A1c, & a - Lipid profile from within the past 365 days. Metabolic Screening ([x]) Not Applicable, patient not on a neuroleptic. OR () Patient on a neuroleptic(s) . Enter below results for Hemoglobin A1C, and lipid panel if obtained during the last 365 days. BMI: 23.100 Blood Pressure: 142/82 Laboratory Results From [facility] (If applicable): Exam and Plan Mental Status Examination Ambulation Status: Sedated, not tested. Appearance: Sedated WF resting in bed with sitter nearby. Attitude towards examiner: N/A. Patient sedated. Psychomotor activity: Sedated, likely from medications given. Behavior: Sedated. Quality of speech: Garbled. Incoherent. Affect: N/A. Patient sedated. Mood: N/A. Patient sedated. Suicidal Ideation: N/A. Patient sedated. Homicidal Ideation: N/A. Patient sedated. Hallucinations: N/A. Patient sedated. Paranoid/Delusional Material: N/A. Patient sedated. Difficulties with thought organization: Unabled to assess. Patient sedated. Insight: N/A. Patient sedated. Judgment: N/A. Patient sedated. Orientation: N/A. Patient sedated. Cognition: N/A. Patient sedated. Memory Function: N/A. Patient sedated. Estimate of intellectual functioning: N/A. Patient sedated. Assets/Strengths Patient Identified Assets/Strengths: N/A. Patient sedated. Impression/Plan Impression and Plan: The patient is heavily sedated after having received medications. She is here after hallucinosis in the context of alcohol use. Was combative in ER. - Include all active medical diagnosis that require tx DSM 5 Diagnosis(es): Unspecified depression. Alcohol withdrawal syndrome with hallucinosis. Alcohol use disorder. COPD. Hx bronchitis. Recent rib fx's. Hx seizure. Hx PUD and GI bleed. Hx OA. Osteoporosis. Hx borderline DM. Recent of dairy store manager. Reported estrangement from daughters. - Initial Tx Plan for Active Psych & Medical Conditions Treatment Plan: The patient will be monitored on the unit for safety, alcohol withdrawal, psychosis and mood disturbance. I have ordered an Ativan detox protocol. Vitamins have been ordered. I have continued all home medications except AMI, which I am stopping due to high lethality potential in overdose. We will replete low K+ (and are rechecking a Mg++, which may also need repletion ). Additional information is needed from collaterals. Anticipate once clinically stable, that the patient will be referred to an inpatient rehab or to an IOP. PATIENT WILL NEED SMOKING AND ALCOHOL COUNSELING DONE ON MONDAY. - Factors that would help patient function - in a less restrictive setting. Factors: Successfully detoxed. Absence of hallucinations.
--- NOTE | 2017-07-07 13:17 | IP INCIDENTAL NOTE PSYCH ---
Incidental Note Notation: Sitter renewed due to fall risk.
--- NOTE | 2017-07-07 14:49 | History & Physical ---
General Information and HPI MD Statement: I have seen and personally examined TOMA PATINO and documented this H&P. The patient is a 56 year old F who presented with a patient stated chief complaint of hallucinations, intoxication. Source of Information: old records Exam Limitations: unable to give history (SEDATED), clinical condition History of Present Illness: The patient tis a 56 yo female with h/o COPD, PUD (h/o UGI bleed), GERD, Hyperlipidemia, osteoporosis, DM2 with Neuropathy, hypothyroid, osteoarthritis, seizures (childhood), who was brought to [facility] ED by police after she called stating that someone was in her house. She was found in an agitated state, hallucinating (nobody was in home) and was threatening to medics and police shouting obscenities. She was place in 4 point restraints in the ED. She had been discharged the day prior from [facility] where she had been evaluated and treated for a rib fracture. She had drank 1 pint of vodka due to depression and anxiety. She drinks 1-2 pints of vodka/week. She was felt to be gravely disabled and was admitted to [facility] on PEC. At the time of my exam on the floor the patient was sedated and unable to answer questions. Relied on chart for history. Allergies/Medications Allergies: Coded Allergies: aspirin (Intermediate, NAUSEA 06/22/17) Home Med list Albuterol Sulfate (Proair Hfa) 90 MCG HFA.AER.AD 2 PUF INH Q4-6 PRN PRN SHORTNESS OF BREATH (Reported) Alendronate Sodium 70 MG TABLET 1 TAB PO QTUES BONE STRENGTH (Reported) in the morning, at least 30 minutes before the first food, beverage, or medication of the day Amitriptyline HCl 50 MG TABLET 1 TAB PO QPM UNKNOWN (Reported) Atorvastatin Calcium 20 MG TABLET 1 TAB PO DAILY CHOLESTEROL (Reported) Budesonide/Formoterol Fumarate (Symbicort 160-4.5 Mcg Inhaler) 160 MCG-4.5 MCG/ ACTUATION HFA.AER.AD 2 PUF INH BID RESP. (Reported) Cholecalciferol (Vitamin D3) (Vitamin D) 1,000 UNIT TABLET 1 TAB PO DAILY SUPPLEMENT (Reported) Divalproex Sodium 250 MG TABLET.DR 1 TAB PO BID NEUROPATHY (Reported) Escitalopram Oxalate 10 MG TABLET 1 TAB PO DAILY DEPRESSION (Reported) Esomeprazole (Nexium) 40 MG CAPSULE.DR 1 CAP PO DAILY GI (Reported) Folic Acid 1 MG TABLET 1 TAB PO DAILY VITAMIN SUPPORT (Reported) Gabapentin 300 MG CAPSULE 1 CAP PO BID NEUROPATHY (Reported) Ipratropium/Albuterol Sulfate (Iprat-Albut 0.5-3(2.5) MG/3 Ml) 0.5 MG-3 MG (2.5 MG BASE)/3 ML AMPUL.NEB 1 AMP INH BID RESP. (Reported) Levothyroxine Sodium (Synthroid) 25 MCG TABLET 1 TAB PO DAILY AC THYROID ( Reported) Lidocaine (Lidoderm) 5 % ADH..PATCH 1 PAT TOP DAILY PAIN (Reported) may wear up to 12 hours Compliance With Home Meds: UNKNOWN Past History Travel History Traveled to [place] past 21 day No Medical History Neurological: NONE, seizure EENT: NONE Cardiovascular: hyperlipidemia Respiratory: COPD Gastrointestinal: peptic ulcer disease, upper GI bleed Hepatic: NONE Renal: NONE Musculoskeletal: osteoarthritis, osteoporosis, BROKEN RIBS Psychiatric: alcohol dependence, anxiety, depression Endocrine: BORDER LINE DIABETES HPOTHYROIDISM Blood Disorders: anemia Cancer(s): NONE 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 Psychosocial History Where do you live? Home Primary Language: Croatian ETOH Use: heavy use Illicit Drug Use: denies illicit drug use Functional Ability ADLs Independent: dressing, eating, toileting, bathing. Ambulation: independent IADLs Independent: shopping, housework, finances, food prep, telephone, transportation , medication admin. Review of Systems Review of Systems Constitutional: Denies: no symptoms. EENTM: Denies: no symptoms. Cardiovascular: Denies: no symptoms. Respiratory: Denies: no symptoms. GI: Denies: no symptoms. Genitourinary: Denies: no symptoms. Musculoskeletal: Denies: no symptoms. Skin: Denies: no symptoms. Neurological/Psychological: Reports: anxiety, confusion, depressed, emotional problems. Hematologic/Endocrine: Denies: no symptoms. Immunologic/Allergic: Denies: no symptoms. Exam & Diagnostic Data Last 24 Hrs of Vital Signs/I&O Vital Signs Date Time Temp Pulse Resp B/P B/P Pulse O2 O2 Flow FiO2 Mean Ox Delivery Rate 07/07 1605 84 131/79 07/07 1603 84 131/79 07/07 1240 99 142/82 07/07 1206 99 142/82 07/07 0856 96.2 95 128/79 07/07 0856 96.2 95 128/79 07/07 0643 97.2 110 16 145/95 07/07 0431 101 16 140/91 07/07 0122 99 127/72 07/06 2230 104 20 137/92 07/06 2230 104 20 137/92 07/06 2225 129 20 150/97 07/06 1953 98.8 92 143/94 07/06 1947 98.8 92 143/94 07/06 1804 99.3 108 15 134/84 07/06 1803 99.3 108 15 134/84 95 Room Air Room Air 07/06 1647 98.4 113 18 145/89 95 Room Air Intake & Output 07/07 1600 07/07 0800 07/07 0000 Intake Total Output Total Balance Patient 144 lb Weight Physical Exam General Appearance Alert (SEDATED) Skin No Rashes, No Breakdown, No Significant Lesion HEENT Atraumatic, PERRLA, EOMI, Mucous Membr. moist/pink Neck Supple, No JVD, No thryomegaly, +2 Carotid Pulse wo Bruit, No LAD Cardiovascular Regular Rate, Normal S1, Normal S2, No Murmurs Lungs Clear to Auscultation, Normal Air Movement Abdomen Normal Bowel Sounds, Soft, No Tenderness, No Hepatospenomegaly, No Masses Neurological Exam Findings: Normal Gait (SEDATED - RYAN) Cranial Nerves II through XII: SEDATED - COULD NOT TEST Extremities No Clubbing, No Cyanosis, No Edema, Normal Pulses, No Tenderness/ Swelling Vascular Normal Pulses, Pulses Symmetrical Last 24 Hrs of Labs/Deion: Laboratory Tests 07/07/17 0640: Anion Gap 11, Estimated GFR > 60, BUN/Creatinine Ratio 28.0 H, Magnesium 1.3 L , Total Bilirubin 0.8, Direct Bilirubin 0.6 H, AST 123 H, ALT 89 H, Alkaline Phosphatase 162 H, Total Protein 6.6, Albumin 3.5, Triglycerides 122, Cholesterol 130, LDL Cholesterol, Calc 53 L, HDL Cholesterol 54, Cholesterol/ HDL Ratio 2.4, Amylase 41, TSH &T3 &Free T4 Intrp 2.590 Assessment/Plan Assessment: Impression/Plan: #Hallucinations/Intoxication - h/o EtOH abuse. Patient sedated at time of my exam. Plan: As per psychiatry- MVI, thiamine, Ativan, folic acid, CIWA etc. #Depression/Anxiety- patient sedated at time of my exam. Plan: As per psychiatry. #COPD- lungs clear at present. Plan: Inhalers as ordered. #Hyperlipidemia- on Atorvastatin. Plan: Continue Atorvastatin. #Hypokalemia/Hypomagnesemia- mild, probably nutritional. Plan: Replete and follow up in several days. #Hypothyroid- on Levothyroxine. Plan: Continue Levothyroxine. #DM2- ? borderline. Not on meds. Glucose OK. Plan: Check Hgb A1C. #Neuropathy- patient is on Gabapentin/Divalproex. Plan: As per psychiatry. #Osteoporosis- on Alendronate. Plan: Hold while in hospital and restart as OP. #GERD- on Nexium. Plan: Substitute Omeprazole. #Hypothyroid- on Levothyroxine. Plan: Continue Levothyroxine. As Ranked By This Provider Problem List: 1. Hallucinations 2. Hypomagnesemia 3. Hypokalemia 4. Alcohol abuse 5. Peripheral neuropathy 6. COPD (chronic obstructive pulmonary disease) 7. Depression 8. Anxiety 9. Hypothyroid 10. Hyperlipidemia 11. GERD (gastroesophageal reflux disease) Miscellaneous Miscellaneous Documentation Attending Case Discussed With: Aubrey Ovalles MD Primary Care Physician: Perry Snyder MD Patient sees these Specialists NONE Level of Patient Care: WILLY Colunga Consults Needed: Consulting Physician: NONE Attending MD Review Statement Attending Statement Attending MD Statement: examined this patient, reviewed EMR data (avail), discussed with nursing, amended to note Attending Assessment/Plan: As above.
--- NOTE | 2017-07-07 16:28 | SOCIAL WORKER PROG NOTE PSYCH ---
Social Work Progress Note Progress Note This bond writer was unable to meet with the patient as she was unarouseable. This bond writer spoke with WILLY Bernal RN regarding the patient. He stated that she was very lethargic, likely due to her medications. Per Warren as well as the patient's sitter, the patient ate very minimal breakfast this morning. Warren stated that when she was awake earlier today she was alert to herself only, confused and not oriented.
--- NOTE | 2017-07-07 18:36 | SOCIAL WORKER PROG NOTE PSYCH ---
Social Work Progress Note Progress Note Social Hx unable to be completed with the patient as she was unarouseable. Staff report when she was awake earlier today she was alert to herself only, confused and not oriented.
[2017-07-08] VITALS (15 sets, daily range): BP systolic 99–143; BP diastolic 68–94
--- NOTE | 2017-07-08 16:45 | CP SOUTH PROGRESS NOTE PSYCH ---
Psych (Inpt) Progress Note Progress Note Include the following elements, when applicable: Involvement in the active treatment of the patient with behavioral observations of the patient and the patient's response to the treatment. Review of the ongoing treatment process in the context of the treatment plan. Indication of how multi-disciplinary staff members are carrying out the treatment plan. Plans for future interventions and recommendations for revision of the treatment plan. Liaison with other physicians/providers. Progress Note: With sitter, quiet and somewhat less shaky compared to earlier today. She is more able to speak with staff and more alert, though she is still confused about the date thinks it is july 05, and that was last week. She is aware of where she is. She states that she needs to leave in 3 days. Staff report she has been getting somewhat agitated and asking to leave but redirectable. Scoring on CIWA with pulses over 100 (about 120s) BP has been rather stable. She has been up during the day time and now laying down in room. Still unsteady with a walker, two staff are assisting her in ambulation. MSE: middle aged woman, sedated somewhat, overweight. She has fine tremor (was worse earlier), and gait is unsteady. She is not hallucinating but nods off at times, so distracted at times. Her speech is coherent and soft. Her thinking is concrete. She is not paranoid or delusional but does want to leave within a few days (explained her it was not yet safe to do so), and her behavior has not been concerning for elopement as of yet. Mood is neutral and affect is constricted. Insight is near absent to severity of her alcohol use and judgment is fair. Not suicidal and not homicidal. A: 56 year old woman with severe alcohol use, scoring on CIWA, actively withdrawing (managed with ativan) on the unit. She is confused about the date but is aware of where she is and why she is here. She has significant risks of harm to self/others due to her withdrawal state and expect that this will improve once her acute sx resolve. Plan: continue sitter for fall risk, continue current plan of care. Will re-eval her CIWA score if pulse increases past 120, low threshold to call for a rapid response if she is scoring higher. I counseled her about health risks (hypertension I noted and lung cancer she noted) of smoking, about cutting down, and smoking cessation group, she somewhat laughed it off but stated she is on the patch which is a first step. Remains ambivalent but at least able to discuss this. I counseled her on health risks (dementia, withdrawal) of alcohol and she said that she wasnt there yet in reference to cessation or cutting down, will re- address tomorrow as well.
--- NOTE | 2017-07-08 17:01 | SOCIAL WORKER SOCIAL HX PSYCH ---
Social History Basic Assessment Insurance Authorization: Insurance #1: Insurance name: [employer] Phone number: Policy number: [id number] Group number: Authorization number: Curr Source of Income/Entitlements: SSDI Primary Care Physician: Patient's PCP: Perry Snyder MD PCP's Present Problem: Patient presented 07/08/17 as tired, depressed, lethargic, flat and orientated x3 with congruent mood and affect. Patient denies SI/HI/AH/VH at present. Patient speech was soft and slurred at times. Patient insight was poor. Per diagnostic assessment history is as follows: Pt is a 56 yo female biba last evening on an [place] [employer] PEER. Police report documents that pt was presenting with hallucinations and telling police there were people in her home that were not there. Pt arrived in the ED agitated, combative and in restraints. Pt continued to be non compliant and belligerant towards staff and was placed in a 4 point restraint and sedated with ativan, benadryl and haldol. Pt BAL was 193. Pt was evaluated by crisis the following morning. Pt reports not being clear why she was brought to [place]. She states someone called the police to do a wellness check. Pt reportedly was discharged earlier yesterday from [place] where she had been admitted medically due to recent rib fracture. Pt reports she went home and drank 1 pint of vodka because she was depressed as it was the birthday of her recently "special effects technician". Pt reports feelings of depression and anxiety and sees her PCP Dr Snyder for medication. She reports he recently increased her Amitriptyline to 50 mg. Pt denies SI/HI and reports no hx of inpatient psychiatric treatment. Pt reports when her children were young DCF required her to go to outpatient counseling otherwise she has had limited mental health treatment. Pt reports drinking 1 pint of vodka 1-2x/wk. She reports prior rehab experiences at [facility] and [facility] but no other alcohol treatment for over 15 years. Pt reports not liking groups or AA. Pt reports being disconnected from family including her 3 daughters and appears to be isolated. She lives by herself and states she is mostly bored except when she can spend sometime with her aunt in [place]. Pt presents as anxious,irritable and OX3. Pt denies AH/VH. Pt offers no rationale for why the police report she was having hallucinations. Pt presents as guarded with minimal insight and poor judgement related to her current health needs. Collateral provided by her PCP and visiting nurse both report pt is gravely disabled and not able to safely live by herself. Pt currently has no child day care provider to stay with. Case reviewed with Dr Barajas. Recommendation for pt to be admitted to inpatient psychiatry. Pt informed of the plan and is not in agreement. Pt will be admitted to [facility] on a PEC. Primary Language? Sudanese Language(s) Spoken At Home: Sudanese Living Situation Rents or Owns Home? rents Other Living Arrangement: N/A Residential Care/Treatment Fac N/A Feel Safe Where You Are Living Yes Feel Safe in Relationships? Yes Comments: Patient rents apartment and lives alone. Allergies - Coded Allergies: aspirin (Intermediate, NAUSEA 06/22/17) Current Medications - Scheduled Medications Alendronate Sodium 70 MG TABLET 1 TAB PO QTUES BONE STRENGTH #4 (Reported) Entered as Reported by Christian Harkins on 09/04/16 0828 Last Taken: 07/06/17 Amitriptyline HCl 50 MG TABLET 1 TAB PO QPM UNKNOWN #30 (Reported) Entered as Reported by Christian Harkins on 07/06/17 1136 Last Taken: 07/06/17 Atorvastatin Calcium 20 MG TABLET 1 TAB PO DAILY CHOLESTEROL #30 (Reported) Entered as Reported by Amanda Bowles on 03/01/172014 Last Taken: 07/06/17 Budesonide/Formoterol Fumarate (Symbicort 160-4.5 Mcg Inhaler) 160 MCG-4.5 MCG/ ACTUATION HFA.AER.AD 2 PUF INH BID RESP. (Reported) Entered as Reported by Amanda Bowles on 07/06/17 1603 Last Taken: 07/06/17 Cholecalciferol (Vitamin D3) (Vitamin D) 1,000 UNIT TABLET 1 TAB PO DAILY SUPPLEMENT (Reported) Entered as Reported by Amanda Bowles on 07/06/17 1600 Last Taken: 07/06/17 Divalproex Sodium 250 MG TABLET.DR 1 TAB PO BID NEUROPATHY #60 (Reported) Entered as Reported by Christian Harkins on 09/04/16826 Escitalopram Oxalate 10 MG TABLET 1 TAB PO DAILY DEPRESSION #30 (Reported) Entered as Reported by Christian Harkins on 09/04/16826 Last Taken: At an unknown date and time Esomeprazole (Nexium) 40 MG CAPSULE.DR 1 CAP PO DAILY GI #30 (Reported) Entered as Reported by Christian Harkins on 09/04/16826 Last Taken: 07/06/17 Folic Acid 1 MG TABLET 1 TAB PO DAILY VITAMIN SUPPORT #30 (Reported) Entered as Reported by Christian Harkins on 07/06/171134 Last Taken: 07/06/17 Gabapentin 300 MG CAPSULE 1 CAP PO BID NEUROPATHY #60 (Reported) Entered as Reported by Christian Harkins on 09/04/16825 Last Taken: At an unknown date and time Ipratropium/Albuterol Sulfate (Iprat-Albut 0.5-3(2.5) MG/3 Ml) 0.5 MG-3 MG (2.5 MG BASE)/3 ML AMPUL.NEB 1 AMP INH BID RESP. (Reported) Entered as Reported by Amanda Bowles on 07/06/17 160 Last Taken: 07/06/17 Levothyroxine Sodium (Synthroid) 25 MCG TABLET 1 TAB PO DAILY AC THYROID ( Reported) Entered as Reported by Tyler Mckay on 11/27/162223 Last Taken: 07/06/17 Lidocaine (Lidoderm) 5 % ADH..PATCH 1 PAT TOP DAILY PAIN (Reported) Entered as Reported by Amanda Bowles on 07/06/17 1602 Scheduled PRN Medications Albuterol Sulfate (Proair Hfa) 90 MCG HFA.AER.AD 2 PUF INH Q4-6 PRN PRN SHORTNESS OF BREATH #9 (Reported) Entered as Reported by Christian Harkins on 09/04/16827 Last Taken: 07/06/17 Consequences of Psych Med Use: Patient is prescribed psych meds by PCP, however, drinks alcohol which results in decompensation. Comments: none Past History Past Medical History Neurological: NONE, seizure EENT: NONE Cardiovascular: hyperlipidemia Respiratory: COPD Gastrointestinal: peptic ulcer disease, upper GI bleed Hepatic: NONE Renal: NONE Musculoskeletal: osteoarthritis, osteoporosis, BROKEN RIBS Psychiatric: alcohol dependence, anxiety, depression Endocrine: BORDER LINE DIABETES HPOTHYROIDISM Blood Disorders: anemia Cancer(s): NONE VP CUSTOMER SERVICE/Reproductive: NONE Past Surgical History Surgical History: unobtainable /Family History Place/Country of Origin: [place], [place] Childhood Family Constellation: Mother, Father, 2 brothers & 1 sister Primary Childhood Caretakers: father, mother Family Life During Childhood: "Back and forth" DCF Involvement? No Mother's Age (Current/): 43 () Relationship w/Mother: "Good" Father's Age (Current/): 82 Relationship w/Father: "Good" Any Sibling(s)? Yes Sibling's Gender(s)/Age(s): male Sibling 1:, male Sibling 2:, female Sibling 3: Relationship w/Sibling(s): "Good". Closer to brother than sisters. Relationship w/Friends: Patient states she has no friends. Family Psych/Sub Abuse/Add Hx: None noted Number of Pregnancies: 3 Number of Miscarriages: 0 Number of Abortions: 0 Other Comments: Patient reports having three daughters. Abuse/Trauma History Trauma History/Current Trauma: Denies History of Trauma/Abuse Treatment? No Abuse/Trauma Treatment: N/A Legal History Legal Guardian/Address/Phone: N/A Current Legal Status: none Pending Court Dates: None Have you ever been arrested Yes (Couple times 15 years ago) Number of Arrests: 2 (Couple) Hx of Juvenile Legal Charges? No Hx of Adult Legal Charges? Yes If Yes: misdemeanor List/Date Most Recent Lgl Chgs: 15 years ago Chgs/Dts/Incarcerations/Sentnc 15 years ago Civil Proceedings: None Domestic Relations Court: N/A Child Protective Serv Involvmnt N/A Certified Pharmacy Technician N/A Psychosocial History Primary Support System: Self Strengths/Capabilities: Pt lives by herself; pt reports not needing assistance Weaknesses: Patient lacks insight into alcohol dependence and negative consequences on life. Physical Limitations (Interventions): None Last Physical: Unclear History of Seizures? Yes Last Seizure: 10 years ago History of Blackouts? Yes Last Blackout: unclear ADL Limitations: None [place]/Social/Peer Relations Patient reports having no close friends and lives alone. Meaningful Activities: "Not really" Childhood Jew: Sikhism Current Episcopalian Affiliation: Sikhism Is Spirituality Important to You? "Yes" Patient's Ethnicity: Sudanese Cultural/Ethnic Issues: None noted Are There Developmental Issues? No Milestones Achieved: fine motor, gross motor Psychiatric Treatment History Psych Treatment Inpatient Treatment No Outpatient Treatment Yes Location of Treatment [facility] Reason for Treatment PCP - prescribing antidepressant medication Dates of Treatment past year Response to Treatment Pt reports depression and anxiety. Pt minimizes etoh use. Collateral reports it is daily Precipitating Factors: Alcohol abuse Current Marketing Planning Manager: Perry Hall MD Treatment of Prior Episodes: Outpatient Diagnosis: Major Depression w/psychosis Alcohol Use D/O severe F10.20 Psychodynamic Issues: SSDI, lives alone, limited supports, financial Risk Factors: chronic/serious med cond., high anxiety/distress, SA/MH hospitalized, substance abuse, isolate/no social support, poor impulse control, lives alone, limited support Substance Use/Abuse History Drug Use/Abuse Substance Used/Abused Alcohol Last Used yesterday How much used/taken 1 pint vodka How often daily For how long 20 yrs with periods of sobriety Route of use Oral Have Had Periods of Sobriety? Yes Explain: Patient notes some times of sobriety and past participation in AA. Relapse History? Yes Explain: Patient has history of relapses and short periods of sobriety. Have You Ever Attended AA? Yes Do You Attend AA Currently? No Do You Have a Sponsor? No Other Community Resources Used: None Symptoms of Use: ETOH Abuse Substance Abuse Treatment Substance Abuse Treatment Inpatient Treatment Yes Outpatient Treatment Yes Location of Treatment [facility]; [facility]; [facility] Reason for Treatment Alcohol Rehab Dates of Treatment last treatment episode over 15 yrs ago Response to Treatment Poor. 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 Pt reports 1 pint vodka a couple times per week. Comments: None Sexual History Sexually Active No # of partners 0 Sexual Orientation Heterosexual Sexual Concerns: None Education History Highest Level of Education: high school/GED Highest Grade Completed: 12th grade Vocational Year Completed: N/A Number of College Years: 0 College Degree/Major: N/A Other Degree(s): none Preferred Learning Style: visual, auditory, experiential HX of Learning Difficulties: None reported Barriers to Learning: None reported Special Communication Needs: None reported Employment History Employment Disability Not in Labor Force: Disabled Vocation/Occupational Hx: SSDI No. of Jobs in Last 5 Years: 0 Attendance: N/A Comments: Patient has not been employed since 2008. History Have You Been in The ? No If Yes, Explain: N/A Type of Discharge: N/A Date of Discharge: N/A Current Mental Status Mental Status Orientation: Person, Place, Situation Affect: Depressed, Flat Speech: Mumbled, Slurred Neuro-vegetative: WNL Appearance Appearance- Dress/Hygiene: Hospital scrubs in bed under sheets; appears older than stated age Behaviors Thought Process: WNL Thought Content: WNL Memory: WNL Insight: Poor SI/HI Risk Assessment Past Suicidal Ideation/Attempts No Current Suicidal Ideation/Att No Past Homicidal Ideation/Att: No Current Homicidal Ideation/Attempts No Degree of Intent: None Danger To: Self Gravely Disabled: Inability, Lack of Insight, Poor Impulse Control, Poor Judgment Risk Factors: SA/MH Hospitalization(s), Isolated/no social suppor, Lives alone, Poor impulse control Lethality Ratin - Conclusion and Recommendations for treatment - and discharge planning Summary: Patient to be admitted inpatient to stabilize mood with medciation evaluation. Patient to undergo psychiatric evaluation. Patient to participate in group therapy, family meeting and discharge planning.
--- NOTE | 2017-07-08 19:35 | PN- Att Addend ---
Attending Addendum Attending Brief Note S: Called to re-evaluate patient. This morning initial blood sugar reported as over 400, however repeat was in low 100's. Also has tachycardia in spite of Ativan. O: VS: Vital Signs Date Time Temp Pulse Resp B/P B/P Pulse O2 O2 Flow FiO2 Mean Ox Delivery Rate 07/08 2116 99.1 07/09 2107 99.1 100 94 07/08 2009 100.1 07/08 2008 100.1 104 07/09 2003 100.1 112 137/86 07/08 195 100.0 112 137/86 07/08 1725 99.7 124 128/75 07/08 1603 99.8 100 124/72 07/08 1603 99.8 100 124/72 91 07/08 1414 100.1 124 143/93 07/08 1323 120 94 132/82 07/08 1322 Room Air 07/08 1321 93 Room Air 07/08 1215 99.9 114 99/68 90 07/08 1211 99.7 114 99/68 07/08 1107 99.0 113 111/70 07/08 0919 99.4 120 139/75 07/08 0807 98.6 120 134/94 07/08 0752 98.6 120 134/94 94 07/08 0411 98.0 108 137/88 07/08 0100 98.0 107 16 106/74 07/07 2336 98.0 112 120/74 07/07 2145 100.0 120 125/77 Physical ExamP HEENT: toni- slightly dry mucosa Neck: no JVD Chest: few upper airway rhonchi that clear post cough Cor: borderline tachy (P 100 at time of my exam), nl S1, S2 w/o murm, regular Ext: no edema Impression/Plan: #Bronchitis- ? may have been some degree of aspiration when patient was sedated, however lungs clear and only low grade temp. Plan: Will treat with Augmentin 875 mg bid x 5 days. #Tachycardia- HR at present was 100. Most likely due to mild volume depletion ( has fever and diminished po intake) along with low grade fever and withdrawal. Plan: Encourage po fluids. Follow HR and if persistent will check ECG. #Hypokalemia/Hypomagnesemia- mild Plan: Will re-check tomorrow post repletion. #Hyperglycemia- initial glucoscan was incorrect. Plan: Will check glucoscans x 48 hours and check Hgb A1C in am.
[2017-07-09] VITALS (13 sets, daily range): BP systolic 115–146; BP diastolic 72–90
--- NOTE | 2017-07-09 14:43 | CP SOUTH PROGRESS NOTE PSYCH ---
See Addendum Psych (Inpt) Progress Note Progress Note Include the following elements, when applicable: Involvement in the active treatment of the patient with behavioral observations of the patient and the patient's response to the treatment. Review of the ongoing treatment process in the context of the treatment plan. Indication of how multi-disciplinary staff members are carrying out the treatment plan. Plans for future interventions and recommendations for revision of the treatment plan. Liaison with other physicians/providers. Progress Note: With sitter, sleeping but arousable. Stated that she is doing well. Was too somnolent for much more discussion. She has not been scoring high enough to get CIWA ativan since last night. She has been getting her scheduled meds. MSE: middle aged woman, sedated, overweight. She has fine tremor when aroused. Speech is mumbled. Thinking is concrete but not fully evaluated due to sedation. Mood is neutral and affect constricted. Insight is near absent to severity of her alcohol use and judgment is fair. A: 56 year old woman with severe alcohol use, actively withdrawing (managed with ativan) on the unit. Entry Level Accountant saw her and attributed elevated pulse also due to dehydration. She has been less tremulous but is still sedated today. Plan: continue sitter for fall risk, continue current plan of care.
[2017-07-10] VITALS (10 sets, daily range): BP systolic 113–136; BP diastolic 68–92
--- NOTE | 2017-07-10 17:18 | CP SOUTH PROGRESS NOTE PSYCH ---
Psych (Inpt) Progress Note Progress Note Include the following elements, when applicable: Involvement in the active treatment of the patient with behavioral observations of the patient and the patient's response to the treatment. Review of the ongoing treatment process in the context of the treatment plan. Indication of how multi-disciplinary staff members are carrying out the treatment plan. Plans for future interventions and recommendations for revision of the treatment plan. Liaison with other physicians/providers. Progress Note: Dr. Smalls's notes reviewed. Case and treatment plan discussed in team meeting. Staff reports that the patient went to breakfast this morning. Remains on one-to-one staffing due to fall risk. CIWA scores were positive over the weekend. Patient seen at 4:55 PM with medical student. Patient is using a walker to help with ambulation. She does have a sitter. Patient displays minimal hand tremor. States she is here because she fell at her house and her nurse called an ambulance and she came to [facility] and was sent to [facility]. She went back home and fell again and an ambulance came and took her here. Reports she had about 1 pint of vodka that day. Past psychiatric history: Reports she saw a counselor 20 years ago when DCF took her kids away because of her drinking. Denies history of suicide attempts. Family history: Denies family psychiatric history. Reports there is alcoholism on both sides, mother, father and grandparents. No suicides in the family. Social history: Single. Has 3 daughters. Close to 2 aunts, 1 lives in [place] and one lives in [place]. Father is at [place]. 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 She has not been working. She is on SSI. History of multiple arrests for "wising off" to the police. Mental status examination: The patient is ambulating with assistance of a walker. She is calm, polite and cooperative. She appears awake and alert. There is no psychomotor agitation or retardation. Speech is normal in volume, rate and tone. Affect is calm and flat. Reports mood is not happy. Rates sad mood probably about 8/10 and anxiety about 8/10. Denies feeling hopeless. Feels helpless, worthless and guilty sometimes. Denies active and passive suicidal ideation. Denies homicidal ideation. Denies auditory and visual hallucinations. Denies paranoid ideation and magical sotelo. Insight and judgment are limited. There is no apparent thought disorder or delusions. The patient is oriented 3 except she gave the date as July 08 or 2017. Reports sleep is not good. Appetite is good when she eats. Energy is good. Reports she last had a seizure a few years ago. She does not want to go to an inpatient rehab because she states that they do not work for her. IMPRESSION: Slow progress. Continue present treatment plan. Patient is not manifesting psychotic symptoms at this time. Continue alcohol detox. Depakote level returned slightly below therapeutic. We will consider increasing dose as patient demonstrates improved mentation. Additional information is needed from collaterals. Anticipate likely discharge later this week.
--- NOTE | 2017-07-10 17:36 | SOCIAL WORKER PROG NOTE PSYCH ---
Social Work Progress Note Progress Note This abstract writer met with patient. Patient was in bed and presented as very lethargic, falling asleep during the conversation. As a result, the conversation was brief. Patient stated that she believed she was in the hospital due to cracking her ribs after a fall. She denied SI/HI/AH/VH. Patient was agreeable to considering a family meeting, however, not willing to identify a person to invite to the meeting. Patient agreed to identify someone and inform this abstract writer.
--- NOTE | 2017-07-10 19:28 | SOCIAL WORKER PROG NOTE PSYCH ---
Social Work Progress Note Progress Note The services requested require additional review. You will be contacted regarding the status of this request if further information is needed. An authorization decision will be made within the required timeframes and details of that decision may be found under the member's authorization history. Member Name Member ID Member Subscriber Name Subscriber ID TOMA PATINO [id number] 1960 TOMA PATINO [id number] Pended Authorization # Client Authorization # Type of Request [id number] CONCURRENT Date of Admission/ Start of Services Requested From Submission Date 07/06/2017 07/10/2017 07/10/2017 Level of Service Type of Service Level of Care Type of Care INPATIENT/[facility]PATIENT [facility]ITAL Reason Code P77 Provider Name & Address Provider ID Provider Alternate ID NPI # for Authorization SAVANAH LU [address] [place] [id number]
[2017-07-11] VITALS (9 sets, daily range): BP systolic 120–134; BP diastolic 74–83
--- NOTE | 2017-07-11 18:14 | SOCIAL WORKER PROG NOTE PSYCH ---
Social Work Progress Note Progress Note This software writer met with patient. Patient described her mood as "ok" and denied SI/ HI/AH/VH. Patient refused rehab and was agreeable to IOP at [facility]. She accepted the intake appointment of 2pm on 07/20/17. Patient and this software writer attempted to reach her daughter, Miya, by phone ([phone]) and a vm was left. A vm was also left for the patient's visiting nurse, Germania ([phone] from [facility]
[2017-07-12] VITALS (8 sets, daily range): BP systolic 120–136; BP diastolic 75–92
--- NOTE | 2017-07-12 10:46 | CP SOUTH PROGRESS NOTE PSYCH ---
Psych (Inpt) Progress Note Progress Note Include the following elements, when applicable: Involvement in the active treatment of the patient with behavioral observations of the patient and the patient's response to the treatment. Review of the ongoing treatment process in the context of the treatment plan. Indication of how multi-disciplinary staff members are carrying out the treatment plan. Plans for future interventions and recommendations for revision of the treatment plan. Liaison with other physicians/providers. Progress Note: Case and treatment plan discussed in team meeting. Staff reports that the patient is looking a little better. Patient seen at 10:18 AM. Still using a walker. Does not remember me. Reports she has been using a walker at home. Reports she had a visiting nurse out of [place]. Patient is oriented to person and place. She thinks the day is . Gives the date as 07/09/17. She correctly names the president. Serial sevens: 93, 84, 77, 70, 63, 56. She reports the distance between [place] and [place] is 300 miles. Affect is calm and blunted. Reports mood is fair. Rates sad mood probably about 7/10 and anxiety about 7/10. Denies feeling hopeless, helpless or worthless. Feels guilty sometimes. Denies active and passive suicidal ideation. Denies homicidal ideation. Denies auditory and visual hallucinations. Denies paranoid ideation. Reports sleep has been pretty good here but it was poor at home. Describes appetite as good. Describes energy as fair. States she would like to go home anytime. IMPRESSION: Slow progress. Continue present treatment plan. There is concern about patient 's cognitive functioning. She is to start disulfiram today as an alcohol deterrent. She knows to avoid all alcohol-containing products while on disulfiram. Patient has consistently refused recommendation for inpatient rehab. She has refused [facility] because she does not want to take [employer] transportation. She is open to going to [facility] for follow-up. Collateral from family will be important.
--- NOTE | 2017-07-12 14:39 | IP INCIDENTAL NOTE PSYCH ---
Incidental Note Notation: Prashanth Rojas RN found a potential drug-drug interaction between Antabuse and omeprazole when printing out information for the patient. There was a case report in the literature of disulfiram toxicity when the 2 medications were combined. I reviewed this with Roula Vora. His [employer] search for an interaction was negative and he feels the risk is minimal. We will use disulfiram now and continue omeprazole here. Patient will be leaving within the next few days and should resume Nexium at home. We will give omeprazole in the meantime and monitor for emergence of any adverse effects.
--- NOTE | 2017-07-12 17:39 | SOCIAL WORKER PROG NOTE PSYCH ---
Social Work Progress Note Progress Note This quality analyst/technical writer met with patient. A vm was left for the patient's daughter (Miya, ) as patient stated that she would be available today. Miya did not return the call. Patient refused to sign an WES for any other friend/family , including her aunt. Patient stated that she is not interested in rehab/ inpatient treatment as she feels that her social security will be cut off and she will be unable to pay her rent and therefore lose her apartment. Patient maintains that she is [facility] She stated that she does not want to go to due to lack of transportation and unwillingness to take [facility] due to previous experiences in which they were unreliable. Patient confirmed that this was with [facility] rather than [facility]. Patient was agreeable to attending AA and stated that she has a current meeting schedule at home. Patient described her mood as "fair" and denied SI/HI/AH/VH. Patient stated that she has a walker at home and does not need one to be provided. This quality analyst/technical writer spoke with Genoveva, the radio time sales supervisor at [facility] [employer] [facility] ([phone]). She was informed of this quality analyst/technical writer's attempt to reach the nurse, Germania, yesterday and left a vm. Genoveva stated that Germania's phone has not been working. She stated that the patient cannot return home due to concerns about safety. She agreed to inform Germania of the call. This, and attempts to reach the daughter, was relayed to Dr. Ovalles. It will be further discussed in team tomorrow morning.
[2017-07-13 08:03] VITALS: BP 123/85
[2017-07-13 08:13] VITALS: BP 123/85
[2017-07-13] MEDS ORDERED: ONE DAILY MULT1 EAC2 PO (10:17)
[2017-07-13] MEDS ORDERED: CHLORASEPTIC S1 EACH PO (10:17)
[2017-07-13] MEDS ORDERED: VITAMIN B-1100 MG PO (10:17)
[2017-07-13] MEDS ORDERED: FOLIC ACID1 M1 PO (10:17)
[2017-07-13] MEDS ORDERED: ESCITALOPRAM OX10 MG PO (10:17)
[2017-07-13] MEDS ORDERED: NICOTINE PATCH1 EAC2 TOP (10:17)
[2017-07-13] MEDS ORDERED: GUAIFENESIN ER600 MG PO (10:17)
--- NOTE | 2017-07-13 10:34 | Patient Discharge Instructions ---
Psych Discharge Inst General Discharge Information Reason for Admission: Was hallucinating at home. Told police there were people in her home. Was agitated, combative and required restraints in ER. BAL was 193. Recent rib fx' s from fall. Feeling depressed and anxious. 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/o COPD Hx bronchitis Recent rib fx's Hx PUD and GI bleed Hx osteoarthritis Osteoporosis Hx borderline DM Summary Tests/Major Procedures Lab ALT 121 U/L H 07/03/17 1240 ALT 99 U/L H 07/05/172019 ALT 89 U/L H 07/07/17 0640 ALT 60 U/L H 07/11/17 1235 AST 230 U/L H 07/03/17 1240 AST 152 U/L H 07/05/172019 AST 123 U/L H 07/07/17 0640 AST 55 U/L H 07/11/17 1235 Alkaline Phosphatase 157 U/L H 07/11/17 1235 Amylase 41 U/L 07/07/17 0640 BUN 13 mg/dL 07/09/17 0555 BUN/Creatinine Ratio 26.0 % H 07/09/17 0555 Calcium 9.2 mg/dL 07/05/172019 Carbon Dioxide 23 mmol/L 07/09/17 0555 Chloride 104 mmol/L 07/09/17 0555 Cholesterol 130 MG/DL 07/07/17 0640 Cholesterol/HDL Ratio 2.4 % 07/07/17 0640 Creatinine 0.5 mg/dL 07/09/17 0555 Direct Bilirubin 0.6 mg/dL H 07/07/17 0640 Direct Bilirubin 0.6 mg/dL H 07/11/17 1235 Estimated GFR > 60 ml/min 07/09/17 0555 Glucose 76 mg/dL 07/05/172019 HDL Cholesterol 54 mg/dL 07/07/17 0640 Hemoglobin A1c 5.2 % 07/09/17 0555 LDL Cholesterol, Calc 53 mg/dL L 07/07/17 0640 Magnesium 1.7 mg/dL 07/09/17 0555 Potassium 4.8 mmol/L 07/09/17 0555 Sodium 141 mmol/L 07/09/17 0555 TSH &T3 &Free T4 Intrp 2.590 uIU/mL 07/07/17 0640 Triglycerides 122 mg/dL 07/07/1740 Troponin I < 0.01 ng/ml 07/03/17 1240 Hct 41.1 % 07/05/172019 Hgb 13.1 G/DL 07/05/172019 MCH 31.9 PG H 07/05/172019 MCHC 31.9 G/DL L 07/05/172019 MCV 100.1 FL H 07/05/172019 MPV 7.0 FL L 07/05/172019 Plt Count 183 /CUMM 07/05/172019 RBC 4.11 /CUMM L 07/05/172019 RDW 18.6 % H 07/05/172019 WBC 6.9 /CUMM 07/05/172019 Serum Alcohol 193.0 MG/DL 07/05/172019 U Benzodiazepines Scrn 520 NG/ML H 07/06/17 0547 Valproic Acid 45.4 ug/mL L 07/05/172019 Valproic Acid 49.0 ug/mL L 07/09/17 0555 Valproic Acid 26.8 ug/mL L 07/13/17626 SERVICE DATE: 07/03/17 EXAM TYPE: CAT - CT HEAD WO IV CONTRAST EXAMINATION: CT HEAD WITHOUT CONTRAST CLINICAL INFORMATION: Evaluate for acute intracranial hemorrhage and fracture. Patient sustained fall with intermittent headache since. COMPARISON: CT head 06/22/2017. TECHNIQUE: Contiguous axial imaging was performed from the skull base to vertex without intravenous administration of contrast. DLP: 647.92 mGy-cm FINDINGS: There is no acute intracranial hemorrhage or abnormal extra-axial collection. No intracranial mass effect or midline shift. Lateral and third ventricles are proportionate to the subarachnoid spaces. No hydrocephalus. Ill-defined foci of hypoattenuation visualized within the periventricular white matter. Lundberg-white matter projection is otherwise grossly preserved and there is no evidence of acute territorial infarct. The calvarium and skull base are intact. Mastoid air cells and middle ear cavities are well aerated. The right maxillary sinus is at least partially opacified. Correlation with prior imaging indicates that there is right maxillary sinus atelectasis. IMPRESSION: Unremarkable CT scan of the head. No evidence of acute territorial infarct or hemorrhage. SERVICE DATE: 07/03/17 EXAM TYPE: RAD - XRY-RIBS UNILATERAL-RIGHT EXAMINATION: XR RIBS, RIGHT CLINICAL INFORMATION: Status post fall, right rib cage pain. Assess for fracture. COMPARISON: Chest x-ray earlier 07/03/2017. CT scan of the chest 06/22/2017. TECHNIQUE: 3 views of the right ribs were obtained. FINDINGS: There is irregularity of the right lateral 8th rib with displacement consistent with acute fractures, not appreciated on the chest x-ray earlier on 07/03/2017, and new compared to the CT scan of the chest. In addition, there are minimally displaced acute fractures of the posterior right seventh, eighth and ninth ribs. The study redemonstrates the healing fractures of the right lateral fifth, sixth and seventh ribs. There are healed fractures of the anterior right seventh and eighth ribs, seen on the prior CT scan. No pleural effusions or pneumothoraces are noted on the right. There are linear opacities at the right base, consistent with atelectasis. There is no focal consolidation or evidence of lung contusion. IMPRESSION: 1. There are acute fractures involving the posterior right seventh, eighth and ninth ribs and there is a fracture of the lateral eighth rib. 2. There are no pleural effusions or pneumothoraces. ERVICE DATE: 07/03/17 EXAM TYPE: RAD - XRY-CHEST XRAY, TWO VIEWS EXAMINATION: XR CHEST CLINICAL INFORMATION: Evaluate for pneumonia. Dyspnea and congestion. COMPARISON: CT chest 06/22/2017. TECHNIQUE: 2 views of the chest were obtained. FINDINGS: Lung lungs are low. There are ill-defined opacities within the lung bases that may represent a manifestation of subsegmental atelectasis or consolidative disease. There is no pleural effusion or pneumothorax. The cardiac silhouette and upper mediastinal contours are unremarkable. No acute osseous finding. IMPRESSION: Lung volumes are low and there are ill-defined opacities within lung bases that may represent a manifestation of subsegmental atelectasis or consolidative disease. Pneumonia is not excluded. SPEC #: [id number] AFUA: 07/03/17 STATUS: COMP RECD: 07/03/[address]: Bonny Cleaning SOURCE: NASOPHARYN ENTR: 07/03/[address]: Lillian WYNNE,Perry Brown SPDESC: MANAGER MULTICULTURAL ORDERED: QUIK FLU AB Procedure Result > RAPID VIRAL INFLUENZA A/B Final 07/03/17-1449 NEGATIVE FOR INFLUENZA A & B EKG from 07/03/17 showed sinus tachycardia @ 118, borderline T wave abnormalities, faster rate since previous tracing, borderline EKG. QT 324. QTc 455. Studies Pending at DC: None. Patient Instructions Contact Information Your Psychiatrist on [facility] was Aubrey Ovalles MD * If you are experiencing an emergency related to this hospitalization, please call [phone] to contact the treating psychiatrist or the psychiatrist-on- call. * To Request a copy of your medical records, please contact the Medical Records Department at [phone]. * To request results of studies pending at the time of discharge, please call [phone]. * Continue your Medications until directed to stop by your Healthcare provider. General Medication Information Please continue to take your new medications and your continued home medications , unless otherwise indicated on your discharge medication list, or unless directed by your MD or [employer] to stop them. Special Instructions Diet Regular Activity As Tolerated (Uses walker at home.) Other Inst/Recommendations Avoid drugs/alcohol! See PCP about abnormal labs, juanita. low Depakote level - Tobacco Use Treatment Offered Post DC Medications Offered: Script Given-See Med List Post DC Tobacco Treatment Plan: [facility] Tobacco Tx [facility] Program Appt Date: 07/26/17 Program Appt Time: 1600 - EtOH/Drug Use D/O Treatment Offered Post DC Medications Offered: Ref Med EtOH/Drug Use D/O (Refused Antabuse.) Post DC EtOH/SubAbuse TX Plan: Other SubAbuse/Dual Pgm Program Appt Date: 07/20/17 Program Appt Time: 1400 Metabolic Screening ([x]) Not Applicable, patient not on a neuroleptic. OR () Patient on a neuroleptic(s) . Enter below results for Hemoglobin A1C, and lipid panel if obtained during the last 365 days. BMI: 23.100 Blood Pressure: 123/85 Laboratory Results From [place] EHR (If applicable): Advance Directives Does the Patient have Medical Advance Directives No/Refused further info Does Pt have Psychiatric Advance Directives? No/Refused further info Does Patient have a Designated Surrogate Decision Maker: No Information About Psychiatric Advance Directives Provided? Refused Discharge Plan Post Hospital Treatment Plan: Returning to home. [facility] 07/20/17 at 2 pm. Visiting nurse TBA if possible. Stay away from alcohol! Your Depakote level is low for unclear reason. Please see [facility]/PCP about this.
[2017-07-13 12:08] VITALS: BP 140/94
--- NOTE | 2017-07-13 12:49 | CP SOUTH PROGRESS NOTE PSYCH ---
See Addendum Psych (Inpt) Progress Note Progress Note Include the following elements, when applicable: Involvement in the active treatment of the patient with behavioral observations of the patient and the patient's response to the treatment. Review of the ongoing treatment process in the context of the treatment plan. Indication of how multi-disciplinary staff members are carrying out the treatment plan. Plans for future interventions and recommendations for revision of the treatment plan. Liaison with other physicians/providers. Progress Note: Case and treatment plan discussed in team meeting. Staff reports that the patient is in a good mood. Feels ready for discharge. Patient seen at 10:34 AM with Carrie Houston LCSW and with medical student. Patient is displaying a stable gait. She is not using walker. She is dressed in blue paper scrubs. She states that she is doing well except for her back which he states has been hurting for a couple of days. I advised her to see her primary care physician, Dr. Hall, about this. She is refusing Antabuse, stating that she is scared about using it. Appears awake and alert. Talked about of her sales service rep, Bonifacio, in March 2015. States she did not have a chance to grieve. Patient displays some loosening of associations. Affect is calm and blunted to euthymic. States she is tired of drinking, claiming that is not getting anywhere. Reports mood is "a little sore, that's it." States she is good. Rates sad mood probably about 3/10. Rates anxiety probably about 5/ 10. Denies feeling hopeless, helpless or worthless. Feels guilty sometimes. Denies active and passive suicidal ideation. Denies homicidal ideation. Denies auditory and visual hallucinations and paranoid ideation. The patient is oriented 3. Reports sleep was not good last night because of her back. Appetite is good when she is not drinking. Energy is good. Denies withdrawal symptoms. She does not evidence any hand tremor. Feels ready and safe for discharge. Continues to have minimal insight about the seriousness of her drinking problem. Depakote level today returned low. Previous level was around 49. I am reluctant to adjust Depakote dose at this time. The patient was advised to pursue outpatient follow-up about Depakote level and dosing. IMPRESSION: Condition improved. Patient has completed her detox here. Okay for discharge today to home. Patient is being referred to [facility]. She will follow up with PCP, Perry Hall MD. We are looking into an alternate visiting nurse service, as her previous visiting nurse is refusing to accept her back at this time.
--- NOTE | 2017-07-13 14:02 | DISCHARGE SUMMARY REPORT-PSYCH ---
Visit Information Visit Dates/Diagnosis' Admission Date: 07/06/17 Discharge Date: 07/13/17 Reason for Admission: Was hallucinating at home. Told police there were people in her home. Was agitated, combative and required restraints in ER. BAL was 193. Recent rib fx's from fall. Feeling depressed and anxious. Psy Discharge Primary Diag: Unspecified depression Psy Discharge Secondary Diag: S/p alc w/d syndrome w/ hallucinosis Alcohol use d/o COPD Hx bronchitis Recent rib fx's Hx PUD and GI bleed Hx osteoarthritis Osteoporosis Hx borderline DM Hospital Course Significant Lab Findings: Lab ALT 121 U/L H 07/03/17 1240 ALT 99 U/L H 07/05/17 2020 ALT 89 U/L H 07/07/17 0640 ALT 60 U/L H 07/11/17 1235 AST 230 U/L H 07/03/17 1240 AST 152 U/L H 07/05/17 2020 AST 123 U/L H 07/07/17 0640 AST 55 U/L H 07/11/17 1235 Alkaline Phosphatase 157 U/L H 07/11/17 1235 Amylase 41 U/L 07/07/17 0640 BUN 13 mg/dL 07/09/17 0555 BUN/Creatinine Ratio 26.0 % H 07/09/17 0555 Calcium 9.2 mg/dL 07/05/172019 Carbon Dioxide 23 mmol/L 07/09/17 0555 Chloride 104 mmol/L 07/09/17 0555 Cholesterol 130 MG/DL 07/07/17 0640 Cholesterol/HDL Ratio 2.4 % 07/07/17 0640 Creatinine 0.5 mg/dL 07/09/17 0555 Direct Bilirubin 0.6 mg/dL H 07/07/17 0640 Direct Bilirubin 0.6 mg/dL H 07/11/17 1235 Estimated GFR > 60 ml/min 07/09/17 0555 Glucose 76 mg/dL 07/05/172019 HDL Cholesterol 54 mg/dL 07/07/17 0640 Hemoglobin A1c 5.2 % 07/09/17 0555 LDL Cholesterol, Calc 53 mg/dL L 07/07/17 0640 Magnesium 1.7 mg/dL 07/09/17 0555 Potassium 4.8 mmol/L 07/09/17 0555 Sodium 141 mmol/L 07/09/17 0555 TSH &T3 &Free T4 Intrp 2.590 uIU/mL 07/07/17 0640 Triglycerides 122 mg/dL 07/07/1740 Troponin I < 0.01 ng/ml 07/03/17 1240 Hct 41.1 % 07/05/172019 Hgb 13.1 G/DL 07/05/172019 MCH 31.9 PG H 07/05/172019 MCHC 31.9 G/DL L 07/05/172019 MCV 100.1 FL H 07/05/172019 MPV 7.0 FL L 07/05/172019 Plt Count 183 /CUMM 07/05/172019 RBC 4.11 /CUMM L 07/05/172019 RDW 18.6 % H 07/05/172019 WBC 6.9 /CUMM 07/05/172019 Serum Alcohol 193.0 MG/DL 07/05/172019 U Benzodiazepines Scrn 520 NG/ML H 07/06/17 0547 Valproic Acid 45.4 ug/mL L 07/05/172019 Valproic Acid 49.0 ug/mL L 07/09/17 0555 Valproic Acid 26.8 ug/mL L 07/13/17626 SERVICE DATE: 07/03/17 EXAM TYPE: CAT - CT HEAD WO IV CONTRAST EXAMINATION: CT HEAD WITHOUT CONTRAST CLINICAL INFORMATION: Evaluate for acute intracranial hemorrhage and fracture. Patient sustained fall with intermittent headache since. COMPARISON: CT head 06/22/2017. TECHNIQUE: Contiguous axial imaging was performed from the skull base to vertex without intravenous administration of contrast. DLP: 647.92 mGy-cm FINDINGS: There is no acute intracranial hemorrhage or abnormal extra-axial collection. No intracranial mass effect or midline shift. Lateral and third ventricles are proportionate to the subarachnoid spaces. No hydrocephalus. Ill-defined foci of hypoattenuation visualized within the periventricular white matter. Lundberg-white matter projection is otherwise grossly preserved and there is no evidence of acute territorial infarct. The calvarium and skull base are intact. Mastoid air cells and middle ear cavities are well aerated. The right maxillary sinus is at least partially opacified. Correlation with prior imaging indicates that there is right maxillary sinus atelectasis. IMPRESSION: Unremarkable CT scan of the head. No evidence of acute territorial infarct or hemorrhage. SERVICE DATE: 07/03/17 EXAM TYPE: RAD - XRY-RIBS UNILATERAL-RIGHT EXAMINATION: XR RIBS, RIGHT CLINICAL INFORMATION: Status post fall, right rib cage pain. Assess for fracture. COMPARISON: Chest x-ray earlier 07/03/2017. CT scan of the chest 06/22/2017. TECHNIQUE: 3 views of the right ribs were obtained. FINDINGS: There is irregularity of the right lateral 8th rib with displacement consistent with acute fractures, not appreciated on the chest x-ray earlier on 07/03/2017, and new compared to the CT scan of the chest. In addition, there are minimally displaced acute fractures of the posterior right seventh, eighth and ninth ribs. The study redemonstrates the healing fractures of the right lateral fifth, sixth and seventh ribs. There are healed fractures of the anterior right seventh and eighth ribs, seen on the prior CT scan. No pleural effusions or pneumothoraces are noted on the right. There are linear opacities at the right base, consistent with atelectasis. There is no focal consolidation or evidence of lung contusion. IMPRESSION: 1. There are acute fractures involving the posterior right seventh, eighth and ninth ribs and there is a fracture of the lateral eighth rib. 2. There are no pleural effusions or pneumothoraces. ERVICE DATE: 07/03/17 EXAM TYPE: RAD - XRY-CHEST XRAY, TWO VIEWS EXAMINATION: XR CHEST CLINICAL INFORMATION: Evaluate for pneumonia. Dyspnea and congestion. COMPARISON: CT chest 06/22/2017. TECHNIQUE: 2 views of the chest were obtained. FINDINGS: Lung lungs are low. There are ill-defined opacities within the lung bases that may represent a manifestation of subsegmental atelectasis or consolidative disease. There is no pleural effusion or pneumothorax. The cardiac silhouette and upper mediastinal contours are unremarkable. No acute osseous finding. IMPRESSION: Lung volumes are low and there are ill-defined opacities within lung bases that may represent a manifestation of subsegmental atelectasis or consolidative disease. Pneumonia is not excluded. 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 QT 324. QTc 455. Course Complications: None. Consultations: The patient was seen for admission H&P by Dr. Asa Obregon, who noted: "Assessment: Impression/Plan: #Hallucinations/Intoxication - h/o EtOH abuse. Patient sedated at time of my exam. Plan: As per psychiatry- MVI, thiamine, Ativan, folic acid, CIWA etc. #Depression/Anxiety- patient sedated at time of my exam. Plan: As per psychiatry. #COPD- lungs clear at present. Plan: Inhalers as ordered. #Hyperlipidemia- on Atorvastatin. Plan: Continue Atorvastatin. #Hypokalemia/Hypomagnesemia- mild, probably nutritional. Plan: Replete and follow up in several days. #Hypothyroid- on Levothyroxine. Plan: Continue Levothyroxine. #DM2- ? borderline. Not on meds. Glucose OK. Plan: Check Hgb A1C. #Neuropathy- patient is on Gabapentin/Divalproex. Plan: As per psychiatry. #Osteoporosis- on Alendronate. Plan: Hold while in hospital and restart as OP. #GERD- on Nexium. Plan: Substitute Omeprazole. #Hypothyroid- on Levothyroxine. Plan: Continue Levothyroxine." Dr. Obregon saw the patient again on 07/08/17 and noted: "#Bronchitis- ? may have been some degree of aspiration when patient was sedated , however lungs clear and only low grade temp. Plan: Will treat with Augmentin 875 mg bid x 5 days. #Tachycardia- HR at present was 100. Most likely due to mild volume depletion ( has fever and diminished po intake) along with low grade fever and withdrawal. Plan: Encourage po fluids. Follow HR and if persistent will check ECG. #Hypokalemia/Hypomagnesemia- mild Plan: Will re-check tomorrow post repletion. #Hyperglycemia- initial glucoscan was incorrect. Plan: Will check glucoscans x 48 hours and check Hgb A1C in am." Allergies: Coded Allergies: aspirin (Intermediate, NAUSEA 06/22/17) Hospital Course/TX Response: The patient was monitored on the unit for safety, psychosis, alcohol withdrawal and mood disorder. She was highly somnolent with unsteady gait during the initial phase of her hospitalization. She was treated with thiamine, folate, multivitamin and a detox with Ativan. She required a 1:1 sitter and walker for fall risk, but her gait improved and these were no longer needed. Lexapro, Depakote and Neurontin were continued. Depakote levels were variable and value on 07/13/17 returned inexlicably low. This will require outpatient follow up. Antabuse was ordered but the patient became scared about it and refused it. Amitriptyline was stopped due to risk of torsades in the event of overdose. The patient limited which family members she would let us contact and consequently a family meeting was not possible. Her previous visiting nurse has refused to take the patient back. The patient refused to attend [facility] but agreed to go to [facility]. Hallucinations remitted. The patient was successfully detoxed. Progress note from date of discharge, 07/13/17: Case and treatment plan discussed in team meeting. Staff reports that the patient is in a good mood. Feels ready for discharge. Patient seen at 10:34 AM with Carrie Houston LCSW and with medical student. Patient is displaying a stable gait. She is not using walker. She is dressed in blue paper scrubs. She states that she is doing well except for her back which he states has been hurting for a couple of days. I advised her to see her primary care physician, Dr. Hall, about this. She is refusing Antabuse, stating that she is scared about using it. Appears awake and alert. Talked about of her neon sign servicer, Bonifacio, in March 2015. States she did not have a chance to grieve. Patient displays some loosening of associations. Affect is calm and blunted to euthymic. States she is tired of drinking, claiming that is not getting anywhere. Reports mood is "a little sore, that's it." States she is good. Rates sad mood probably about 3/10. Rates anxiety probably about 5/ 10. Denies feeling hopeless, helpless or worthless. Feels guilty sometimes. Denies active and passive suicidal ideation. Denies homicidal ideation. Denies auditory and visual hallucinations and paranoid ideation. The patient is oriented 3. Reports sleep was not good last night because of her back. Appetite is good when she is not drinking. Energy is good. Denies withdrawal symptoms. She does not evidence any hand tremor. Feels ready and safe for discharge. Continues to have minimal insight about the seriousness of her drinking problem. Depakote level today returned low. Previous level was around 49. I am reluctant to adjust Depakote dose at this time. The patient was advised to pursue outpatient follow-up about Depakote level and dosing. IMPRESSION: Condition improved. Patient has completed her detox here. Okay for discharge today to home. Patient is being referred to [facility]'s IOP. She will follow up with PCP, Perry Hall MD. We are looking into an alternate visiting nurse service, as her previous visiting nurse is refusing to accept her back at this time. Discharge HBIPS - Tobacco Use Treatment Offered Post DC Medications Offered: Script Given-See Med List Post DC Tobacco Treatment Plan: [facility] Program Appt Date: 07/26/17 Program Appt Time: 1600 - EtOH/Drug Use D/O Treatment Offered Post DC Medications Offered: Ref Med EtOH/Drug Use D/O (Antabuse refused.) Post DC EtOH/SubAbuse TX Plan: Other SubAbuse/Dual Pgm ([facility]) Program Appt Date: 07/20/17 Program Appt Time: 1400 Metabolic Screening - Screen if on a Neuroleptic Medication - Metabolic screening should include: - Blood Pressure, BMI, Glucose or Hgb A1c, & a - Lipid profile from within the past 365 days. Metabolic Screening ([x]) Not Applicable, patient not on a neuroleptic. OR () Patient on a neuroleptic(s) . Enter below results for Hemoglobin A1C, and lipid panel if obtained during the last 365 days. BMI: 23.100 Blood Pressure: 140/94 Laboratory Results From [facility] (If applicable): Discharge Instructions General Discharge Information Multiple Neuroleptics: ([x]) Not Applicable OR Document below three failed attempts at monotherapy, or a plan to taper to monotherapy, or augmentation of Clozapine. () Discharge Diet Regular Discharge Activity As Tolerated (Uses walker at home.) DC Disposition: Returning to home. Referrals Ordered Referrals Provider Referral 07/20/17 For Groups: [ Care] [facility] [address] [facility], [place] [phone] Intake appointment: June at 2pm Provider Referral 07/17/17 For Providers: [Dr. Perry Snyder] Dr. Perry Snyder [address] [facility], [place] [phone] Appointment: 07/17/17, at 10:15am Prescriptions Stop taking the following medications: Amitriptyline HCl (Amitriptyline HCl) 50 MG TABLET ORAL Every night Qty = 30 Lidocaine (Lidoderm) 5 % ADH..PATCH On the skin DAILY Continue taking these medications: Gabapentin (Gabapentin) 300 MG CAPSULE 1 Capsule ORAL TWICE DAILY Qty = 60 Comments: Last Taken:11/29/16 Time:09 Divalproex Sodium (Divalproex Sodium) 250 MG TABLET.DR 1 Tablet ORAL TWICE DAILY Qty = 60 Comments: Last Taken:11/29/16 Time:931 Esomeprazole (Nexium) 40 MG CAPSULE.DR 1 Capsule ORAL DAILY Qty = 30 Comments: Last Taken:11/29/16 Time:0555 Albuterol Sulfate (Proair Hfa) 90 MCG HFA.AER.AD 2 Puff Inhale through mouth EVERY 4-6 HOURS NEEDED as needed for SHORTNESS OF BREATH Qty = 9 Comments: Last Taken:11/29/16 Time:0801 Alendronate Sodium (Alendronate Sodium) 70 MG TABLET 1 Tablet ORAL EVERY MONDAY Qty = 4 Instructions: in the morning, at least 30 minutes before the first food, beverage, or medication of the day Comments: Last Taken:11/29/16 Time:0558 Levothyroxine Sodium (Synthroid) 25 MCG TABLET 1 Tablet ORAL DAILY BEFORE BREAKFAST Comments: Last Taken:11/29/16 Time:0555 Atorvastatin Calcium (Atorvastatin Calcium) 20 MG TABLET 1 Tablet ORAL DAILY Qty = 30 Cholecalciferol (Vitamin D3) (Vitamin D) 1,000 UNIT TABLET 1 Tablet ORAL DAILY Ipratropium/Albuterol Sulfate (Iprat-Albut 0.5-3(2.5) MG/3 Ml) 0.5 MG-3 MG (2.5 MG BASE)/3 ML AMPUL.NEB 1 Amp Inhale through mouth TWICE DAILY Budesonide/Formoterol Fumarate (Symbicort 160-4.5 Mcg Inhaler) 160 MCG-4.5 MCG/ ACTUATION HFA.AER.AD 2 Puff Inhale through mouth TWICE DAILY Escitalopram Oxalate (Escitalopram Oxalate) 10 MG TABLET 1 Tablet ORAL DAILY Qty = 14 This prescription has been renewed Start taking the following new medications: Nicotine (Nicotine Patch) 14 MG/24 HOUR PATCH.TD24 14 Milligram On the skin DAILY Qty = 14 No Refills Guaifenesin (Guaifenesin ER) 600 MG TAB.ER.12H 600 Milligram ORAL EVERY 12 HOURS Qty = 28 No Refills Benzocaine/Menthol (Chloraseptic Sore Throat Lozng) 6 MG-10 MG LOZENGE 1 Lozenge ORAL EVERY 2 HOURS NEEDED as needed for Sore Throat Qty = 70 No Refills Thiamine HCl (Vitamin B-1) 100 MG TABLET 100 Milligram ORAL DAILY Qty = 14 No Refills Multivitamin (One Daily Multivitamin) 1 EACH TABLET 1 Tablet ORAL DAILY Qty = 14 No Refills The following medications have been changed: Old: Folic Acid (Folic Acid) 1 MG TABLET 1 Tablet ORAL DAILY Qty = 30 New: Folic Acid (Folic Acid) 1 MG TABLET 1 Tablet ORAL DAILY Qty = 14 Other Inst/Recommendations Avoid drugs/alcohol! See PCP about abnormal labs, juanita. low Depakote level Studies Pending at Discharge None. Copies To: formerly [facility]; Lillian WYNNE,Perry Brown
[2017-07-13 15:48] VITALS: BP 137/77
[2017-07-13 15:49] VITALS: BP 137/77
--- NOTE | 2017-07-13 18:23 | SOCIAL WORKER PROG NOTE PSYCH ---
Social Work Progress Note Progress Note Meg Black (medical student) and this mortgage or loan underwriter met with patient. It was observed that the patient wasn't using her walker. Patient stated that she has a walker at home if needed. Patient complained of back pain and will follow up with her primary care provider (Dr. Hall, 07/19/17, 10:15am). She identified the loss of her animal trapper in March of 2015 as an event that she has not yet grieved. She described her mood as "good". She acknowledged the need for ongoing treatment. She refused rehab; she accepted IOP at [facility]. Patient was agreeable to attending 12 Step Meetings. She denied SI/HI/AH/VH and stated that she feels safe and ready to return home today. Patient's daughter did not return calls during her hospitalization on [facility]. She refused to allow contact with any other family members. Patient was informed that she would be provided with crisis numbers and warm lines upon discharge and agreed to utilize them as needed. This mortgage or loan underwriter spoke with Genoveva, property maintenance supervisor at [facility] [phone] who was informed that the patient is refusing rehab, accepting IOP at [facility] (intake on 07/20/17), and discharging today. Genoveva expressed concerns about safety related to patient's alcohol use and stated that they would not resume services with her. This mortgage or loan underwriter also received a call from patient's nurse , Germania, from that agency. She was informed of the discharge plan. She expressed the same concerns as Genoveva. She stated that she was visting the patient weekly. She believes that the patient takes her medications as prescribed and is able to administer medications. This mortgage or loan underwriter made referrals to [facility] and [facility] in effort of identifying a visting nurse. Spoke with Norma at [facility] - did not accept the referral due to the reasoning of [facility] to discontinue services. Spoke with Corrie at [facility] - accepted the patient, however, would not start services until she has attended the appointment with [facility]. This was reviewed with Dr. Ovalles and the patient, who were in agreement with this plan. This mortgage or loan underwriter left a vm for Maxine at [facility] ([phone]) [facility] if the patient is seen sooner. Marcelo capellan was scheduled with Tammy (at [place]), trip reference number: [id number] Faxed Referral(s) 1 Referred To: [facility] Transition of Care Documents sent: Health Summary, W10 Faxed to: [facility] Fax #: [phone] Faxed by: Nemo Houston [employer]OR [employer]ER Date faxed: 07/13/17 Time Faxed: [phone] Faxed Referral(s) 2 Referred To: [facility] Transition of Care Documents sent: Health Summary, W10 Faxed to: Care Fax #: [phone] Faxed by: Nemo Houston LCSW Date faxed: 07/13/17 Time Faxed: [phone] Faxed Referral(s) 3 Referred To: Dr. Perry Snyder Transition of Care Documents sent: Health Summary Faxed to: Dr. Perry Snyder Fax #: [phone] Faxed by: Nemo Houston LCSW Date faxed: 07/13/17 Time Faxed: [phone]
--- NOTE | 2017-07-14 15:33 | SOCIAL WORKER PROG NOTE PSYCH ---
Social Work Progress Note Progress Note Jacquelyn from [facility] ([phone]) contacted this technical publications writer by phone to confirm discharge plan. She was informed of the conversation with Cecilia. [facility] will begin services upon patient attending the first appointment with [facility].
== END 2017-07-13 18:15 | DRG 754 ==
LOC: ERH 19:03 → CP SOUTH 07-06 14:14 → ERHI 07-06 14:14 → CP SOUTH 07-06 19:38
PROVIDERS: Emergency Medicine; Pediatrics
DX: F32.9 Major depressive disorder, single episode, unspecified (principal); F10.231 Alcohol dependence with withdrawal delirium; J44.9 Chronic obstructive pulmonary disease, unspecified
CPT/HCPCS: 36415; 80307; 82436; 96372; G0480; J0515; J1200; J1630; J3490